=== PATIENT | female | born 1930 | race Caucasian/White ===

== ENCOUNTER 2019-08-11 19:12 | Inpatient (IN) | payer OTHER, BC ==
[~2019-08-11] VITALS: Ht 152.4 cm; Wt 63.1 kg
[2019-08-11 19:12] VITALS: BP 140/65
--- NOTE | 2019-08-11 19:12 | NUR ---
89 y/o female biba from [facility] c/o sob/ resp distress x todat after 1630. paramedics said last time seen normal was at 1630. lung sounds are ronchi and rales throughout. on cpap on the way and was sating at 89%. gcs: 9. EET 7.0 SIZE. TAPED AT 23. ON VENT WITH FIO2 50%. SKIN INTACT. VSS. nka. pmh: htn, parkinsons, ibs, glucacoma, uti. 1918 2MG JOSSELYN GIVEN IVP. 1919 SUCC 100MG IVP GIVEN. 1920 UNTUBATION STARTED BY ZIA MENDEZ. 1920 EET SIZE 7.0 AND 23CMA T LIP. 1920 LAC 18 GAUGE 1934 RIGHT FOREARM 18 GUAGE. 1939: NG TUBE PLACED, 18FR. 300CC OF YELLOW BROWN DRAINAGE. ON INTERMITTENT SUCTION. 1949: PROFOLOL STARTED: BP IS 145/68, HR 104, SPO2 96% ON VENT 2015: REYES 16FR INSERTED AND COLLECTED 25CC OF DARK YELLOW URINE. 2042: INCREASED DOSE OF PROFOLOL TO 10MCG/KG/MIN. 3.01 ML/HR. BP IS 126/67. ALTAGRACIA SCORE IS -3. MD LIZARRAGA WANTS ALTAGRACIA SCORE TO BE -4. 2057: INCREASED DOSE OF PROFOLOL TO 15MCG/KG/MIN. 4.51ML/HR. BP: 135/68 2120: INCREASED DOSE OF PROFOLOL TO 20MCG/KG/MIN. 6.02ML/HR. BP: 135/66. ALTAGRACIA SCORE IS -3.
[2019-08-11 19:13] VITALS: BP 142/62
[2019-08-11] MEDS ORDERED: PROPOFOL 1000 MG/100 ML PREMIX 100 ML IV ONE ×2 (19:22→19:50)
[2019-08-11] MEDS ORDERED: NACL 0.9% 500 ML IV SCH (19:24)
[2019-08-11] MEDS ORDERED: SUCCINYLCHOLINE CHLORIDE 200 MG/10 ML VIAL IVP ONE (19:50)
[2019-08-11] MEDS ORDERED: ROCURONIUM 50 MG/5 ML VIAL IV ONE (19:50)
--- NOTE | 2019-08-11 19:50 | NUR ---
Called [facility], spoke to Lacy BLANCAS and updated Pt's status.
[2019-08-11 20:18] LABS: PROTHROMBIN TIME 11.6 secs (10.8-13.4)
--- NOTE | 2019-08-11 20:35 | NUR ---
CRITICAL LAB OBTAINED FROM [facility]. LACTIC ACID 2.7. NOTIFIED.
--- NOTE | 2019-08-11 20:42 | NUR ---
lab at bedside.
[2019-08-11 20:59] LABS: BASOPHILS # (AUTO) 0.1 K/uL (0.00-0.22); BASOPHILS % (AUTO) 0.6 % (0.0-2.0); EOSINOPHILS % (AUTO) 0.2 % (0.0-4.0); HEMATOCRIT 34.8 % (36-48); HEMOGLOBIN 11.3 g/dL (12.0-16.0); LYMPHOCYTES # (AUTO) 0.9 K/uL (2.5-16.5); LYMPHOCYTES % (AUTO) 5.1 % (20.5-51.1); MEAN CORPUSCULAR HEMOGLOBIN 31 pg (27-31); MEAN CORPUSCULAR HGB CONC 33 g/dL (33-37); MEAN CORPUSCULAR VOLUME 94.5 fL (80-94); MONOCYTES # (AUTO) 0.6 K/uL (0.8-1.0); MONOCYTES % (AUTO) 3.3 % (1.7-9.3); NEUTROPHILS # (AUTO) 16.4 K/uL (1.8-7.7); NEUTROPHILS % (AUTO) 90.8 % (42.2-75.2); PLATELET COUNT (AUTO) 265 K/uL (140-450); RED BLOOD CELL COUNT(AUTO) 3.68 MIL/uL (4.20-5.40); WHITE BLOOD COUNT (AUTO) 18.1 K/uL (4.8-10.8)
[2019-08-11] MEDS ORDERED: PIPERACILLIN/TAZOBACTAM 3.375 GM in DEXTROSE 5% 50 ML IV ONE (21:05)
[2019-08-11] MEDS ORDERED: NACL 0.9% 1,000 ML IV ONE (21:05)
[2019-08-11 21:10] LABS: BILIRUBIN,URINE NEGATIVE (NEGATIVE); BLOOD, URINE NEGATIVE (NEGATIVE); LEUKOCYTE ESTERASE ,URINE TRACE (NEGATIVE); NITRITE, URINE NEGATIVE (NEGATIVE); PH,URINE 5.5 (5.0-9.0); UGLUCOSE NEGATIVE (NEGATIVE)
[2019-08-11 21:12] LABS: APPEARANCE,URINE HAZY (CLEAR); COLOR,URINE AMBER (YELLOW)
[2019-08-11 21:20] VITALS: BP 148/69
[2019-08-11 21:22] LABS: RBC,URINE NONE SEEN /HPF (0-5); WBC,URINE 20-60 /HPF (0-5)
[2019-08-11] MEDS ORDERED: LEVOFLOXACIN 500 MG/D5W PREMIX 100 ML IV ONE (21:25)
--- NOTE | 2019-08-11 21:35 | NUR ---
2135: PROFOLOL INCREASED TO 25MCG/KG/MIN. 7.53ML/HR. BP: 135/68, SPO2 96%, 93HR. INCREASED UNTIL ALTAGRACIA LEVEL IS -4. ALTAGRACIA IS -3. 2204 PROFOLOL INCREASED TO 30MCG/KG/MIN. 9.03ML/HR. BP: 132/71. HR: 94, SPO2 97% ON VENT, RR 35. ALTAGRACIA SCORE IS -3. 2220: BP: 120/70, SPO2 98%, HR 94, RR 37. PROFOLOL STILL AT 30MCG/KG/MIN. 2230: BP: 118/71, SPO2 `00% ON VENT, HR 93, RR 33. PROFOLOL STILL AT 30MCG/KG/MIN. ALTAGRACIA SCORE IS -3. 2310: PROFOLOL INCREASED TO 35MCG/KG/MIN. 10.54ML/HR. BP:114/67, RR 27, HR 86, SPO2 100% ON VENT. ALTAGRACIA SCORE IS -4. MET MD ORDER FOR ALTAGRACIA TO BE AT -4.
[2019-08-11] MEDS ORDERED: PIPERACILLIN/TAZOBACTAM 3.375 GM VIAL IV ONE (21:41)
[2019-08-11 21:47] LABS: CARBON DIOXIDE 20.5 mmol/L (21-32); CHLORIDE 104 mmol/L (98-107); CREATININE 0.9 mg/dL (0.6-1.3); GLUCOSE 188 mg/dL (74-106); SODIUM SERUM 139 mmol/L (136-145); UREA NITROGEN, BLOOD 24 mg/dL (7-18)
[2019-08-11 21:49] LABS: POTASSIUM 3.5 mmol/L (3.5-5.1)
[2019-08-11 21:53] LABS: ASPARTATE AMINOTRANSFERASE 6 U/L (15-37); TOTAL BILIRUBIN 0.7 mg/dL (0.0-1.0)
[2019-08-11] MEDS ORDERED: MORPHINE SULFATE 2 MG/ML SYR IVP PRN (22:20)
[2019-08-11] MEDS ORDERED: HYDROcodone/APAP 5/325 MG 1 TAB TAB PO PRN (22:20)
[2019-08-11] MEDS ORDERED: DOCUSATE SODIUM 100 MG GELCAP PO PRN (22:20)
[2019-08-11] MEDS ORDERED: ACETAMINOPHEN 325 MG TAB PO PRN (22:20)
[2019-08-11] MEDS ORDERED: ONDANSETRON 4 MG/2 ML VIAL IM/IVP PRN (22:20)
[2019-08-11] MEDS ORDERED: ZOLPIDEM 5 MG TAB PO PRN (22:20)
[2019-08-11] MEDS ORDERED: LORazepam 2 MG/ML VIAL IM/IVP PRN (22:20)
[2019-08-11] MEDS ORDERED: ASPIRIN 600 MG SUPP RC ONE (22:20)
[2019-08-11] MEDS ORDERED: NITROGLYCERIN 0.4 MG TAB SL PRN (22:25)
[2019-08-11] MEDS ORDERED: CARB1ODT4 PO (22:43)
[2019-08-11] MEDS ORDERED: DOCU-299 PO (22:43)
[2019-08-11] MEDS ORDERED: BETH25TA47 PO (22:44)
[2019-08-11] MEDS ORDERED: COM200 PO (22:45)
[2019-08-11] MEDS ORDERED: OLAN2.5T1 PO (22:46)
[2019-08-11] MEDS ORDERED: MIDO5TAB4 PO (22:47)
[2019-08-11] MEDS ORDERED: EXE9.5T TP (22:47)
[2019-08-11] MEDS ORDERED: MEGE40SU23 PO (22:48)
[2019-08-11] MEDS ORDERED: ISTR20TA PO (22:53)
[2019-08-11] MEDS ORDERED: TERI250S2 SC (22:55)
[2019-08-11 22:57] LABS: CHOL/HDL RATIO 3.2 (1-4.5); MAGNESIUM 1.7 mg/dL (1.8-2.4); PHOSPHORUS 2.6 mg/dL (2.5-4.9); THYROID STIMULATING HORMONE 1.3 uIU/mL (0.34-3.74)
[2019-08-11] MEDS ORDERED: METH1TAB50 PO (22:57)
[2019-08-11] MEDS ORDERED: PANTOPRAZOLE 80 MG in NACL 0.9% 100 ML IV SCH (23:15)
[2019-08-11 23:30] VITALS: BP 122/78
--- NOTE | 2019-08-11 23:35 | NUR ---
PT RECEIVED FROM ER VIA [facility]. REPORT RECEIVED FROM AKANKSHA FERNANDEZ. PT ETT TO VENT. ON ACVC SETTINGS. FIO2 40, TV 500, RATE 12, PEEP 5. PT SEDATED ON PROPOFOL DRIP AT 35MCG/KG/MIN. DRY WEIGHT 50.2 KG. SINUS RHYTHM ON MONITOR. LUNG SOUNDS RHONCHI. PERIPHERAL IV SITE AT LEFT AC 18 GAUGE AND RIGHT FOREARM 18 GAUGE. NS BOLUS CURRENTLY INFUSING. ABDOMEN SOFT AND FLAT. ACTIVE BOWEL SOUNDS. NGT ON THE R NARE SLIGHTLY OUT, REINSERTED. SKIN IS WARM AND DRY. CAP REFILL LESS THAN 20 SECONDS. MULTIPLE MOLES NOTED ON ABDOMEN AREA. REDNESS ON SACRAL AREA. REYES CATHETER IN PLACE. HOB 30 DEGREES. BED LOCKED IN LOWEST POSITION. WILL CONTINUE TO MONITOR.
[2019-08-11 23:45] VITALS: BP 112/69
[2019-08-11 23:55] VITALS: BP 112/69
[2019-08-12] VITALS (93 sets, daily range): BP systolic 81–159; BP diastolic 50–107
--- NOTE | 2019-08-12 01:00 | NUR ---
PT HAD 1 BM, BROWN RUNNY, STOOL. JUN CARE PROVIDED.
[2019-08-12] MEDS ORDERED: MAG SULF 2000 MG/WATER PREMIX 50 ML IV SCH ×2 (01:05→11:09)
--- NOTE | 2019-08-12 02:00 | NUR ---
IV LINE ON LEFT AC LEAKING. REATTEMPTED TO INSERT IV LIVE MULTIPLE TIMES. CALLED [facility] NURSE TO INSERT IV LINE. PERIPHERAL IV 20 GAUGE LINE ON R FOREARM, INTACT, PATENT, GOOD BLOOD RETURN.
[2019-08-12] MEDS: LACTATED RINGERS 1,000 ML IV SCH ×2 (03:00→06:57)
[2019-08-12] MEDS ORDERED: PROPOFOL 1000 MG/100 ML PREMIX 100 ML IV ONE (03:50)
--- NOTE | 2019-08-12 04:15 | NUR ---
PT ON PROPOFOL DRIP RASS -3. INFUSING AT 35 MCG/KG/MIN. DRY WEIGHT 50.2 KG
[2019-08-12] MEDS: NACL 0.9% 1,000 ML IV SCH ×2 (04:28→14:59)
[2019-08-12] MEDS ORDERED: hePARIN / DEXT 5% PREMIX 250 ML IV SCH (04:35)
[2019-08-12] MEDS ORDERED: HEPARIN PER PHARMACY MC PRN (04:35)
--- NOTE | 2019-08-12 05:30 | NUR ---
PT BROUGHT TO CT SCAN VIA [facility].
[2019-08-12] MEDS ORDERED: PROPOFOL 1000 MG/100 ML PREMIX 100 ML IV PRN (05:55)
--- NOTE | 2019-08-12 06:15 | NUR ---
PT RETURNED FROM CT SCAN.
[2019-08-12 06:31] LABS: ANION GAP 17.9 (8-16); CARBON DIOXIDE 22.1 mmol/L (21-32); CHLORIDE 106 mmol/L (98-107); CREATININE 0.8 mg/dL (0.6-1.3); GLUCOSE 113 mg/dL (74-106); SODIUM SERUM 143 mmol/L (136-145); UREA NITROGEN, BLOOD 20 mg/dL (7-18)
[2019-08-12 06:34] LABS: BASOPHILS % (AUTO) 0.1 % (0.0-2.0); HEMOGLOBIN 10.6 g/dL (12.0-16.0); LYMPHOCYTES # (AUTO) 1.1 K/uL (2.5-16.5); LYMPHOCYTES % (AUTO) 7.4 % (20.5-51.1); MEAN CORPUSCULAR HEMOGLOBIN 31 pg (27-31); MEAN CORPUSCULAR HGB CONC 33 g/dL (33-37); MEAN CORPUSCULAR VOLUME 93.9 fL (80-94); MONOCYTES # (AUTO) 0.7 K/uL (0.8-1.0); MONOCYTES % (AUTO) 4.5 % (1.7-9.3); PLATELET COUNT (AUTO) 221 K/uL (140-450); RED BLOOD CELL COUNT(AUTO) 3.41 MIL/uL (4.20-5.40); RED CELL DISTRIBUTION WIDTH 13.7 % (11.6-13.7); WHITE BLOOD COUNT (AUTO) 14.7 K/uL (4.8-10.8)
[2019-08-12 06:48] LABS: MAGNESIUM 1.5 mg/dL (1.8-2.4)
[2019-08-12] MEDS: hePARIN / DEXT 5% PREMIX 250 ML IV SCH (06:57)
[2019-08-12] MEDS: PIPERACILLIN/TAZOBACTAM 3.375 GM in DEXTROSE 5% 50 ML IV SCH ×3 (07:00→21:03)
[2019-08-12] MEDS ORDERED: PIPERACILLIN/TAZOBACTAM 3.375 GM VIAL IV ONE (07:03)
--- NOTE | 2019-08-12 07:30 | NUR ---
RECEIVED BEDSIDE REPORT FROM SUPERVISOR MALTED MILK RN. PT IS SEDATED. RASS -3. FLACC 0. AFEBRILE. SR-SB ON MONITOR. S1 S2 HEARD. ETT TO VENT: A/C VC FIO2 40%, VT 400, RR 12, PEEP 5. LUNGS SOUND CLEAR BILATERALLY. BREATHING EVEN AND UNLABORED. NGT IN PLACE TO RIGHT NARE. PLACEMENT CONFIRMED. PERIPHERAL IVS G 18 AND G20 BOTH TO RIGHT FOREARM PATENT AND INTACT, RUNNING PROPOFOL AT 35 MCG/KG/MIN (DRY WEIGHT 50.2 KG), HEPARIN DRIP AT 600 UNIT/HR, NS AT 60 ML/HR.REYES CATH IN PLACE DRAINING URINE TO GRAVITY DRAINAGE BAG. SKIN IS INTACT, DRY AND WARM TO TOUCH. PULSE PALPABLE TO ALL EXTREMITIES. HOB 30 DEGREES. BED IN LOWEST POSITION LOCKED. CALL LIGHT WITHIN REACH. WILL CONTINUE TO MONITOR.
--- NOTE | 2019-08-12 07:30 | NUR ---
REPORT GIVEN TO EFRAIN FERNANDEZ FOR CONTINUITY OF CARE.
--- NOTE | 2019-08-12 07:40 | NUR ---
RECEIVED PT FROM [facility] ON AC 12,400.+5,40%. VENTILATOR PLUGGED INTO RED OUTLET. BMV AT THE HEAD OF BED. ALARMS AUDIBLE AND WORKING. PT REMAINS STABLE. NO SX NEEDED AT THIS TIME.WILL CONTINUE TO MONITOR.
[2019-08-12] MEDS ORDERED: ISTRADEFYLLINE 20 MG PO SCH (08:00)
[2019-08-12] MEDS ORDERED: MEGESTROL 400 MG/10 ML UDC PO SCH (08:11)
--- NOTE | 2019-08-12 08:26 | NUR ---
PATIENT HAS BEEN SCREENED AND CATEGORIZED HIGH NUTRITION RISK. PATIENT WILL BE SEEN WITHIN 1-2 DAYS OF ADMISSION. 08/12/19-08/13/[address]
[2019-08-12] MEDS: PANTOPRAZOLE 40 MG INJ VIAL IVP SCH (08:44)
[2019-08-12] MEDS: ASCORBIC ACID 500 MG TAB PO SCH (08:45)
[2019-08-12] MEDS: LACTOBACILLUS RHAMNOSUS GG 1 EACH CAP PO SCH (08:45)
[2019-08-12] MEDS: ASPIRIN 81 MG TAB.CHEW PO SCH (08:46)
[2019-08-12] MEDS: MIDODRINE 5 MG TAB PO SCH ×3 (08:46→17:07)
[2019-08-12] MEDS: FERROUS SULFATE 325 MG TABEC PO SCH (08:46)
[2019-08-12] MEDS: ENTACAPONE 200 MG TAB PO SCH ×2 (08:59→21:02)
[2019-08-12] MEDS ORDERED: METOPROLOL 25 MG TAB PO SCH (09:00)
[2019-08-12] MEDS: BETHANECHOL 25 MG TAB PO SCH ×3 (09:00→17:07)
[2019-08-12] MEDS ORDERED: CARBIDOPA/LEVODOPA 25/100 MG 1 TAB PO SCH (09:00)
[2019-08-12] MEDS ORDERED: DOCUSATE SODIUM 100 MG GELCAP PO SCH (09:00)
[2019-08-12] MEDS ORDERED: KCL 20 MEQ/WATER INJ PREMIX 100 ML IV SCH (09:00)
[2019-08-12] MEDS ORDERED: LISINOPRIL 5 MG TAB PO SCH (09:00)
--- NOTE | 2019-08-12 09:00 | NUR ---
MEDICATIONS ADMINISTERED ORDERED. PT TOLERATED WELL.
--- NOTE | 2019-08-12 09:33 | NUR ---
Research Aide Note: Basic Screen: Yes High Risk DC Screen Yes Name: NIKOLE ESCAMILLA Home Relationship: SISTER Pre-Admission Living Arrangements: Other Other: [facility] Prior ADL Needs Assistance Current Home Health Name/Tel: N/A Current DME/02 Name/Tel: [facility], [facility] Current Hospice Name/Tel: N/A Current Dialysis Name/Tel: N/A Healthcare Decision Maker: Next of Kin Other: SISTER - NIKOLE ESCAMILLA Advance Directive No Discipline: Case Mgt/Social Svcs Tentative Discharge Plan/Destination: No Needs Identified Will require assistance post discharge: No Referred to Driver Medic: No Tentative Discharge Plan Summary: Patient is an 82-year-old female admitted for respiratory failure. Patient has PMHX of Parkinson's, IBS, and HTN. Patient was admitted from [facility]. SW contacted Sharon, a nurse from [facility] [phone]. Per Sharon, patient has standby assistance with all ADLs due to patient's Parkinson's. Sharon also stated that patient is able to ambulate with a walker independently, but needs assistance with all other ADLs. Sharon reported that patient has been a resident of [facility] since August 2016, but that [facility] is a tri-level care facility. Sharon explained that it is possible patient was a resident of the [facility], and may be transferred to a skilled residence in [facility] if necessary. Sharon reported that patient has no advanced directive on file, but that sister, Nikole Escamilla is her healthcare decision maker. Per Sharon, patient's discharge plan is to return to [facility]. No further needs identified. Signature: NAHID Jimenez Date: Aug 12, 2019 Time: 09:31
[2019-08-12] MEDS ORDERED: POTASSIUM CHLORIDE 10 MEQ TABER PO SCH (11:07)
[2019-08-12] MEDS ORDERED: POTASSIUM CHLORIDE 20% 40 MEQ/15 ML UDC PO SCH (11:23)
[2019-08-12] MEDS ORDERED: POTASSIUM PHOSPHATE 15 MM in NACL 0.9% 250 ML IV SCH (11:30)
--- NOTE | 2019-08-12 11:30 | NUR ---
ECHOCARDIOGRAM AT BEDSIDE. PT STILL ON PROPOFOL DRIP, RASS -3. FLACC 0. NO SIGNS OF DISTRESS. WILL CONTINUE TO MONITOR.
[2019-08-12] MEDS ORDERED: METHENAMINE HIPPURATE PO SCH (11:37)
[2019-08-12] MEDS ORDERED: TERIPARATIDE 600 MCG/2.4 ML SUBQ SCH (12:03)
[2019-08-12] MEDS: CARBIDOPA/LEVODOPA 25/100 MG 1 TAB PO SCH ×3 (12:44→20:00)
[2019-08-12] MEDS: RIVASTIGMINE 9.5 MG/24 HR PATCH TP SCH (12:44)
--- NOTE | 2019-08-12 13:25 | NUR ---
RECEIVED CALL FROM PT'S SISTER, ANA. UPDATES GIVEN ON PT'S CONDITION.
[2019-08-12 13:35] LABS: PROTHROMBIN TIME 13.2 secs (10.8-13.4)
--- NOTE | 2019-08-12 13:42 | NUR ---
08/12/19 RD INITIAL ASSESSMENT COMPLETED PLEASE REFER TO NUTRITION ASSESSMENT UNDER CARE ACTIVITY FOR ESTIMATED NUTRITIONAL NEEDS. 1. CONTINUE NPO MEDICALLY APPROPRIATE 2. IF PATIENT CONTINUES TO BE INTUBATED CONSIDER TUBE FEEDING WITH VITAL AF 1.2 @ GOAL RATE 45 ML/HR. START AT 15 ML/HR AND INCREASE BY 15 ML/HR Q6H. FREE WATER FLUSH OF 105 ML Q6H -THIS WILL PROVIDE 1080 ML OF VOLUME, 1296 KCAL AND 81 GM OF PROTEIN WHICH MEETS 100% OF ESTIMATED NEEDS. 3. IF PATIENT IS EXTUBATED CONSIDER ORDERING A SWALLOW EVALUATION TO INITIATE A PO DIET 4. RD TO FOLLOW-UP 2-3 DAYS, HIGH RISK JENNIFER [address] RD
--- NOTE | 2019-08-12 16:02 | NUR ---
VAP ORAL CARE GIVEN. TURNED AND REPOSITIONED FOR COMFORT AND OFF LOADED PRESSURE AREAS. PT TOLERATED WELL.
--- NOTE | 2019-08-12 19:30 | NUR ---
REPORT GIVEN TO CHANNELING MACHINE OPERATOR RN FOR CONTINUITY OF CARE. NO SIGNS OF DISTRESS NOTED AT THIS TIME.
--- NOTE | 2019-08-12 20:00 | NUR ---
RECEIVED PATIENT ON BED WITH HOB ELEVATED TO 30 DEGREE; SEDATED WITH CONTINOUS PROPOFOL DRIP AT 35 MCG/KG/MIN VIA G 20 IV CANNULA ON RIGHT FOREARM; IVF IN PROGRESS NORMAL SALINE AT 60 ML/HR; CARDIAC SCOPE SHOWS ON SINUS RHYTHM HR 66, NO ARRHYTHMIAS SEEN.ORALLY INTUBATED AND VENTILATED AT 40% FIO2 SO2 100%. ABDOMEN SOFT, HYPOACTIVE BOWEL SOUNDS; NGT IN SITU; KEPT NPO EXCEPT MEDS. WITH REYES CATH IN PLACE DRAINING TO CLEAR YELLOW URINE OUTPUT, PATENT AND INTACT. Addendum: 08/12/19 at 2203 by Rika Santa RN DRY WEIGHT USE FOR PROPOFOL DRIP IS 50.2 KG.
--- NOTE | 2019-08-12 20:28 | NUR ---
RECEIVED ON Managed [employer] R860 VENTILATOR PLUGGED INTO RED OUTLET TOLERATING WELL WITHOUT ADVERSE REACTIONS NOTED TO AN ENDOTRACHEAL TUBE #7.0 SECURED AT 23cm WITH AN ANCHOR FAST CUFF PRESSURE CHECKED NOTED AMBU BAG AT BEDSIDE LOC QUIET STABLE NO PULMONARY DISTRESS NOTED GOOD EQUAL CHEST RISE ENDOTRACHEAL SUCTION FOR LARGE THICK TO THIN YELLOW/BLOODY SECRETIONS OROPHARYNX SUCTION FOR LARGE THICK TO THIN DARK RED SECRETIONS AIRWAY PATENT
[2019-08-12] MEDS: ATORVASTATIN 20 MG TAB PO SCH (21:02)
[2019-08-12] MEDS: OLANZapine 2.5 MG TAB PO SCH (21:03)
[2019-08-12] MEDS: METHENAMINE HIPPURATE PO SCH (21:05)
--- NOTE | 2019-08-12 21:58 | NUR ---
RESTING COMFORTABLY NO RESPIRATORY DISTRESS NOTED GOOD CHEST RISE AIRWAY PATENT
--- NOTE | 2019-08-12 23:52 | NUR ---
NO DISTRESS NOTED RESTING WELL ENDOTRACHEAL SUCTION FOR LARGE BLOODY SECRETIONS AIRWAY PATENT
[2019-08-13] VITALS (99 sets, daily range): BP systolic 73–130; BP diastolic 38–73
--- NOTE | 2019-08-13 | NUR ---
TURNED AND REPOSITIONED PATIENT; ORAL CARE DONE WITH VAP, NOTED WITH MINIMAL PINKISH SECRETION FROM THE MOUTH.
[2019-08-13] MEDS: PIPERACILLIN/TAZOBACTAM 3.375 GM in DEXTROSE 5% 50 ML IV SCH ×4 (00:23→20:14)
[2019-08-13] MEDS: NACL 0.9% 1,000 ML IV SCH ×2 (00:24→16:48)
--- NOTE | 2019-08-13 01:47 | NUR ---
SEDATED NO RESPIRATORY DISTRESS NOTED GOOD CHEST RISE ENDOTRACHEAL SUCTION FOR MODERATE BLOODY SECRETIONS AIRWAY PATEN
[2019-08-13 03:36] LABS: CHLORIDE 111 mmol/L (98-107); CREATININE 0.7 mg/dL (0.6-1.3); GLUCOSE 101 mg/dL (74-106); SODIUM SERUM 144 mmol/L (136-145); UREA NITROGEN, BLOOD 14 mg/dL (7-18)
[2019-08-13 03:40] LABS: PHOSPHORUS 2.7 mg/dL (2.5-4.9)
--- NOTE | 2019-08-13 03:43 | NUR ---
PERSISTENT FILIBERTO RED BLOOD APPEARING DURING ENDOTRACHEAL SUCTIONING ILEANA/RN NOTIFIED RE: PULMONARY EMBOLUS; HEPARIN DRIP ACTIVE
--- NOTE | 2019-08-13 03:44 | NUR ---
POST ENDOTRACHEAL SUCTIONING PATIENT NOTED WITH BRONCHOSPASM WITH INSPIRATORY WHEEZE BILATERAL FIELD HEALTH OFFICER TO ADVISE DR. ELÍAS HOPKINS NEW ORDERS: OK TO ORDER HHN PRN THERAPY WITH DUONEB Q4 PRN FOR SOB AND OR WHEEZE
[2019-08-13] MEDS ORDERED: ALBUTEROL SULFATE/IPRATROPIU 3 ML SOL IH PRN (03:50)
[2019-08-13] MEDS ORDERED: ALBUTEROL SULFATE/IPRATROPIU 3 ML SOL IH ONE (03:54)
--- NOTE | 2019-08-13 03:59 | NUR ---
NOTED WITH MODERATE TO COPIOUS BRIGHT RED SECRETION FROM ETT DURING SUCTIONING; REFERRED TO DR. YANEZ, SEEN AND EXAMINED PATIENT WITH ORDER TO HOLD HEPARIN DRIP FOR 2 HRS AND OBSERVED CLOSELY THE PATIENT.
[2019-08-13 04:01] LABS: PROTHROMBIN TIME 12.3 secs (10.8-13.4)
--- NOTE | 2019-08-13 04:15 | NUR ---
MORNING BED BATH DONE; HAD BM TO A MODERATE AMOUNT OF SOFT FORMED STOOL; STOOL SPECIMEN SENT TO LAB FOR OCCULT BLOOD.
[2019-08-13] MEDS: ALBUTEROL SULFATE/IPRATROPIU 3 ML SOL IH PRN (05:49)
--- NOTE | 2019-08-13 05:50 | NUR ---
SOB NOTED ENDOTRACHEAL SUCTION FOR MODERATE THICK YELLOW WITH BLOODY SECRETIONS AIRWAY PATENT
--- NOTE | 2019-08-13 06:15 | NUR ---
PATIENT STILL HAVING MINIMAL TO SMALL AMOUNT OF BRIGHT RED BLOOD FROM THE ETT AND FROM THE MOUTH; REFERRED TO DR. YANEZ; ORDERED TO CONTINUE HOLDING HEPARIN DRIP; CARRIED OUT.
--- NOTE | 2019-08-13 06:30 | NUR ---
STOOL SPECIMENT SENT TO LAB FOR OCCULT BLOOD.
[2019-08-13 06:34] LABS: BASOPHILS % (AUTO) 0.2 % (0.0-2.0); EOSINOPHILS % (AUTO) 0.2 % (0.0-4.0); HEMATOCRIT 26.9 % (36-48); HEMOGLOBIN 8.9 g/dL (12.0-16.0); LYMPHOCYTES # (AUTO) 1.4 K/uL (2.5-16.5); LYMPHOCYTES % (AUTO) 9.5 % (20.5-51.1); MEAN CORPUSCULAR HEMOGLOBIN 31 pg (27-31); MEAN CORPUSCULAR HGB CONC 33 g/dL (33-37); MEAN CORPUSCULAR VOLUME 94.2 fL (80-94); MONOCYTES # (AUTO) 0.6 K/uL (0.8-1.0); MONOCYTES % (AUTO) 4.3 % (1.7-9.3); NEUTROPHILS # (AUTO) 12.7 K/uL (1.8-7.7); NEUTROPHILS % (AUTO) 85.8 % (42.2-75.2); PLATELET COUNT (AUTO) 196 K/uL (140-450); RED BLOOD CELL COUNT(AUTO) 2.86 MIL/uL (4.20-5.40); RED CELL DISTRIBUTION WIDTH 13.9 % (11.6-13.7); WHITE BLOOD COUNT (AUTO) 14.8 K/uL (4.8-10.8)
--- NOTE | 2019-08-13 06:55 | NUR ---
received pt from [facility] on ac 12.400,+5,35%. ventilator plugged into red outlet. bmw at head of bed. alrms audible and working. pt is currently stable at the moment. b/s were mild wheezes. will give a prn in about a couple of hours. saturation is 100%. did not sx the patient at this time. will continue to monitor
--- NOTE | 2019-08-13 07:30 | NUR ---
RECEIVED BEDSIDE REPORT FROM CONSULTANT RN RN. PT IS SEDATED. RASS -3. FLACC 0. AFEBRILE. SINUS TACHY ON MONITOR. S1 S2 HEARD. PULSE PALPABLE TO ALL EXTREMITIES. ETT TO VENT W/ SETTINGS: A/C VC FIO2 35%, VT 400, RR 12, PEEP 5. WHEEZING HEARD BILATERALLY. BREATHING EVEN AND UNLABORED. NGT IN PLACE TO RIGHT NARE. PLACEMENT CONFIRMED. NO RESIDUALS, NO SIGNS OF BLEEDING NOTED. PICC LINE TO RIGHT UPPER ARM IN PLACE, PERIPHERAL IV G18 TO RIGHT AC AND G20 TO RIGHT FOREARM PATENT AND INTACT, RUNNING PROPOFOL AT 25 MCG/KG/MIN (DRY WEIGHT 50.2 KG), IVF NS AT 60 ML/HR. REYES CATH IN PLACE DRAINING MATILDA URINE TO GRAVITY. SKIN IS INTACT, DRY AND WARM TO TOUCH. SACRAL BLANCHABLE REDNESS NOTED. HOB 30 DEGREES. BED IN LOWEST POSITION LOCKED. CALL LIGHT WITHIN REACH. NO SIGNS OF DISTRESS NOTED. WILL CONTINUE TO MONITOR.
--- NOTE | 2019-08-13 08:00 | NUR ---
PT SEEN BY DR. DELGADILLO AND RESIDENT GROUP AT BEDSIDE, MADE AWARE OF INCREASED HR 115 BPM AND DECREASED BP 87/52 (MAP 69) AT THIS TIME. WILL FOLLOW UP ON ORDERS.
[2019-08-13 08:06] LABS: FOLIC ACID 13.6 ng/mL (>3.0)
[2019-08-13] MEDS: ENTACAPONE 200 MG TAB PO SCH ×2 (08:19→20:11)
[2019-08-13] MEDS: BETHANECHOL 25 MG TAB PO SCH ×3 (08:19→16:47)
[2019-08-13] MEDS: ASCORBIC ACID 500 MG TAB PO SCH (08:21)
[2019-08-13] MEDS: MEGESTROL 400 MG/10 ML UDC PO SCH (08:21)
[2019-08-13] MEDS: MIDODRINE 5 MG TAB PO SCH ×3 (08:22→16:47)
[2019-08-13] MEDS: PANTOPRAZOLE 40 MG INJ VIAL IVP SCH (08:22)
[2019-08-13] MEDS: ASPIRIN 81 MG TAB.CHEW PO SCH (08:22)
[2019-08-13] MEDS: LACTOBACILLUS RHAMNOSUS GG 1 EACH CAP PO SCH (08:22)
[2019-08-13] MEDS: FERROUS SULFATE 325 MG TABEC PO SCH (08:22)
[2019-08-13] MEDS: METHENAMINE HIPPURATE PO SCH ×2 (08:23→20:14)
[2019-08-13] MEDS: TERIPARATIDE 600 MCG/2.4 ML SUBQ SCH (08:23)
[2019-08-13] MEDS: CARBIDOPA/LEVODOPA 25/100 MG 1 TAB PO SCH ×4 (08:23→20:14)
--- NOTE | 2019-08-13 08:26 | NUR ---
MEDICATIONS ADMINISTERED ORDERED. PT TOLERATED WELL. ASPIRIN HELD PER DR. MORALES DUE TO BLEEDING FROM ETT. NO SIGNS OF BLEEDING NOTED FROM NGT. NGT PLACEMENT CONFIRMED, NO RESIDUALS NOTED PRIOR TO MED ADMINISTRATION.
--- NOTE | 2019-08-13 11:10 | NUR ---
PT SEEN AND EXAMINED BY DR. ROSALES. RECEIVED ORDER TO CONTINUE HEPARIN DRIP AT SAME RATE, NO BOLUS, AND TO START CPAP WEANING TRIALS. SEDATION HELD. RT CHOWDHURY MADE AWARE.
--- NOTE | 2019-08-13 11:36 | NUR ---
per dr. bob. Pt placed on cpap of 10/5 35% at 11:25. pt is achieving adequate vt. pt is alert and responds to simple commands. will continue to monitor Addendum: 08/13/19 at 1244 by Jerald Cesar RT per Dr. Talbot not dr. bob
--- NOTE | 2019-08-13 12:05 | NUR ---
VAP ORAL CARE GIVEN. PT IS ON SBT. OPENS EYES, FOLLOWS SIMPLE COMMANDS, VSS. TURNED AND REPOSITIONED FOR COMFORT AND OFF LOADING PRESSURE AREAS. NO S/SX OF DISTRESS NOTED. WILL CONTINUE TO MONITOR.
[2019-08-13] MEDS: RIVASTIGMINE 9.5 MG/24 HR PATCH TP SCH (12:12)
--- NOTE | 2019-08-13 13:54 | NUR ---
PT TOLERATING SBT. DR. ROSALES MADE AWARE. ORDER RECEIVED.
--- NOTE | 2019-08-13 13:55 | NUR ---
per dr cross. wants patient placed on sbt of 8/5 and abg in 30 minutes. pt is now on 8/5 and achieving vt of 400-500.
--- NOTE | 2019-08-13 14:21 | NUR ---
DR. RAMOS IN TO SEE PT. WILL FOLLOW UP ON ORDERS.
--- NOTE | 2019-08-13 15:13 | NUR ---
PLACED PATIENT BACK ON FULL SUPPORT DUE TO HIGH RESP RATE.
--- NOTE | 2019-08-13 15:20 | NUR ---
RIGHT UPPER ARM AT PICC LINE SITE NOTED SWOLLEN AND BRUISED. PICC LINE AND PERIPHERAL IVS HAVE GOOD BLOOD RETURN. DR. TOTH MADE AWARE. WILL FOLLOW UP ON ORDERS.
--- NOTE | 2019-08-13 16:21 | NUR ---
ULTRASOUND FOR BUE AT BEDSIDE.
--- NOTE | 2019-08-13 16:30 | NUR ---
RESIDENT PHYSICIAN DR. TOTH MADE AWARE OF POSITIVE STOOL OCCULT BLOOD. PER DR. TOTH, CONTINUE HEPARIN DRIP.
[2019-08-13] MEDS: PROPOFOL 1000 MG/100 ML PREMIX 100 ML IV PRN (16:55)
[2019-08-13 17:03] LABS: BASOPHILS % (AUTO) 0.2 % (0.0-2.0); EOSINOPHILS % (AUTO) 0.1 % (0.0-4.0); HEMOGLOBIN 7.9 g/dL (12.0-16.0); LYMPHOCYTES % (AUTO) 6.8 % (20.5-51.1); MEAN CORPUSCULAR HEMOGLOBIN 31 pg (27-31); MEAN CORPUSCULAR HGB CONC 33 g/dL (33-37); MEAN CORPUSCULAR VOLUME 92.6 fL (80-94); MONOCYTES # (AUTO) 0.5 K/uL (0.8-1.0); MONOCYTES % (AUTO) 3.1 % (1.7-9.3); NEUTROPHILS # (AUTO) 13.4 K/uL (1.8-7.7); NEUTROPHILS % (AUTO) 89.8 % (42.2-75.2); PLATELET COUNT (AUTO) 209 K/uL (140-450); RED BLOOD CELL COUNT(AUTO) 2.59 MIL/uL (4.20-5.40); WHITE BLOOD COUNT (AUTO) 14.9 K/uL (4.8-10.8)
--- NOTE | 2019-08-13 18:08 | NUR ---
DR. TOTH MADE AWARE OF 400 ML URINE OUTPUT DURING THE SHIFT. ORDER RECEIVED.
[2019-08-13] MEDS: ALBUTEROL SULFATE/IPRATROPIU 3 ML SOL IH SCH (19:13)
--- NOTE | 2019-08-13 19:26 | NUR ---
REPORT GIVEN TO ASSOCIATE FACULTY RN FOR CONTINUITY OF CARE. NO SIGNS OF ACUTE DISTRESS NOTED AT THIS TIME.
--- NOTE | 2019-08-13 19:30 | NUR ---
RECEIVED PT FROM EFRAIN FERNANDEZ. PT ETT TO VENT ON ACVC SETTINGS. FIO2 35% TV 400, RATE 12, PEEP 5. GUM LINE 24CM. LUNG SOUNDS RHONCHI. PICC LINE BUSTER INTACT, PATENT, INFUSING PROPOFOL 30MCG/KG/MIN AND NS INFUSING AT 90ML/HR. RASS -3. RIGHT FOREARM, INTACT, PATENT INFUSING HEPARIN AT 600MG/MIN. SINUS RHYTHM ON MONITOR. ABDOMEN SOFT, FLAT. ACTIVE BOWEL SOUNDS. NGT IN PLACE R NARE. SKIN IS WARM AND DRY. CAP REFILL LESS THAN 2 SECONDS. SACRAL REDNESS NOTED. GENERALIZED WEAKNESS. NPO EXCEPT MEDS. REYES CATHETER IN PLACE. WEIGHT 50.2KG. HOB 30 DEGREES. BED LOCKED IN LOWEST POSITION.
[2019-08-13] MEDS: ATORVASTATIN 20 MG TAB PO SCH (20:12)
[2019-08-13] MEDS: OLANZapine 2.5 MG TAB PO SCH (20:12)
--- NOTE | 2019-08-13 21:10 | NUR ---
PT HAS EYES CLOSED, NO SOB OR DISTRESS NOTED. RESPIRATIONS AND EVEN AND UNLABORED. WILL CONTINUE TO MONITOR.
--- NOTE | 2019-08-13 23:45 | NUR ---
R FOREARM INFILTRATED AND R AC IV SITE LEAKING. REMOVED BOTH IV SITES. INSERTED NEW 20 GAUGE IV LINE ON L WRIST, INTACT, PATENT, GOOD BLOOD RETURN.
[2019-08-14] VITALS (84 sets, daily range): BP systolic 101–165; BP diastolic 28–91
[2019-08-14] MEDS: hePARIN / DEXT 5% PREMIX 250 ML IV SCH ×2 (00:55→07:36)
--- NOTE | 2019-08-14 00:55 | NUR ---
HEPARIN NOW INFUSING AT 500 UNITS/HR FOR APTT OF 79.5.
[2019-08-14] MEDS: PROPOFOL 1000 MG/100 ML PREMIX 100 ML IV PRN ×2 (00:56→07:39)
[2019-08-14] MEDS: ALBUTEROL SULFATE/IPRATROPIU 3 ML SOL IH SCH ×4 (01:05→19:24)
--- NOTE | 2019-08-14 02:01 | NUR ---
PT HAS EYES CLOSED. NO SOB NOTED. RESPIRATIONS EVEN AND UNLABORED. SAFETY PRECAUTIONS IN PLACE. WILL CONTINUE TO MONITOR.
--- NOTE | 2019-08-14 04:00 | NUR ---
PATIENT REPOSITIONED FOR COMFORT. V/S STABLE. WILL CONTINUE TO MONITOR
[2019-08-14] MEDS: NACL 0.9% 1,000 ML IV SCH (05:03)
[2019-08-14] MEDS: PIPERACILLIN/TAZOBACTAM 3.375 GM in DEXTROSE 5% 50 ML IV SCH ×3 (05:03→21:01)
--- NOTE | 2019-08-14 06:00 | NUR ---
DUE MEDICATIONS GIVEN. V/S STABLE. WILL CONTINUE TO MONITOR
[2019-08-14 06:26] LABS: BASOPHILS % (AUTO) 0.1 % (0.0-2.0); EOSINOPHILS % (AUTO) 0.3 % (0.0-4.0); HEMATOCRIT 22.5 % (36-48); HEMOGLOBIN 7.5 g/dL (12.0-16.0); LYMPHOCYTES # (AUTO) 1.2 K/uL (2.5-16.5); LYMPHOCYTES % (AUTO) 8.4 % (20.5-51.1); MEAN CORPUSCULAR HEMOGLOBIN 31 pg (27-31); MEAN CORPUSCULAR HGB CONC 33 g/dL (33-37); MEAN CORPUSCULAR VOLUME 93.1 fL (80-94); MONOCYTES # (AUTO) 0.4 K/uL (0.8-1.0); NEUTROPHILS # (AUTO) 12.4 K/uL (1.8-7.7); NEUTROPHILS % (AUTO) 88.2 % (42.2-75.2); PLATELET COUNT (AUTO) 197 K/uL (140-450); RED BLOOD CELL COUNT(AUTO) 2.42 MIL/uL (4.20-5.40); RED CELL DISTRIBUTION WIDTH 13.9 % (11.6-13.7); WHITE BLOOD COUNT (AUTO) 14.1 K/uL (4.8-10.8)
[2019-08-14 06:41] LABS: ANION GAP 15.6 (8-16); CARBON DIOXIDE 20.5 mmol/L (21-32); CHLORIDE 110 mmol/L (98-107); CREATININE 0.6 mg/dL (0.6-1.3); GLUCOSE 101 mg/dL (74-106); PHOSPHORUS 2.1 mg/dL (2.5-4.9); POTASSIUM 3.1 mmol/L (3.5-5.1); SODIUM SERUM 143 mmol/L (136-145); UREA NITROGEN, BLOOD 13 mg/dL (7-18)
--- NOTE | 2019-08-14 07:02 | NUR ---
RECIVED PT ON VENT WITH SETTING CHARTED BREATH SOUNDS PRESENT BILAT COARSE SXN PT WITH MIN TO MOD AMT REDDISH SECS ETT SECURE AMBU BAG AT BEDSIDE VENT PLUGGED INTO RED OUTLET WILL CONTINUE TO MONITOR PT ON VENT
--- NOTE | 2019-08-14 07:12 | NUR ---
REPORT GIVEN TO ALBERTO FERNANDEZ FOR CONTINUITY OF CARE. ORDERS REVIEWED AT BEDSIDE.
--- NOTE | 2019-08-14 07:15 | NUR ---
RECEIVED BEDSIDE REPORT FROM SALES PLANNER NURSE, PT IS SEDATED RASS -3, VSS, FLACC 0, ETT TO VENT WITH AC FIO2 25, VT 400, R 12, PEEP 5, NO S/S OF DISTRESS, CLEAR LUNG SOUNDS LOUIS. SR ON SOLAR THERMAL TECHNICIAN, CAP REFILL <2 SEC, SOFT ABDOMEN WITH ACTIVE BOWEL SOUNDS, NGT TO RIGHT NARES, 10ML RESIDULES NOTED, ON NPO EXCEPT MEDS AT THIS TIME, REYES CATHETER IN PLACE WITH CLEAR YELLOW URINE VIA GRAVITY, ON SOFT LOUIS WRIST RESTRAIN, GENERALIZED WEAKNESS NOTED, SKIN IS WARM AND DRY TO TOUCH, NO OPEN WOUNDS, PICC LINE TO RIGHT UPPER ARM, PATENT, RUNNING NS AT 90 ML/HR AND PROPOFOL DRIP AT 35 MCG/KG/MIN, DRY WEIGHT USING ON PUMP IS 50.2KG, IV TO LEFT WRIST, 20GA, PATENT, RUNNING HEPARIN DRIP AT 500 UNITS/HR. ORAL CARE PROVIDED, HOB ELEVATED TO 30 DEGREES, SAFETY MEASURES IN PLACE, POSITION CHANGED FOR OFF LOAD PRESSURE, WILL CONTINUE TO MONITOR.
[2019-08-14] MEDS: ENTACAPONE 200 MG TAB PO SCH ×2 (08:45→21:01)
[2019-08-14] MEDS: PANTOPRAZOLE 40 MG INJ VIAL IVP SCH (08:45)
[2019-08-14] MEDS: ASCORBIC ACID 500 MG TAB PO SCH (08:45)
[2019-08-14] MEDS: BETHANECHOL 25 MG TAB PO SCH ×2 (08:45→13:14)
[2019-08-14] MEDS: MEGESTROL 400 MG/10 ML UDC PO SCH (08:45)
[2019-08-14] MEDS: MIDODRINE 5 MG TAB PO SCH ×3 (08:45→16:39)
[2019-08-14] MEDS: LACTOBACILLUS RHAMNOSUS GG 1 EACH CAP PO SCH (08:45)
[2019-08-14] MEDS: CARBIDOPA/LEVODOPA 25/100 MG 1 TAB PO SCH ×4 (08:46→20:50)
[2019-08-14] MEDS: FERROUS SULFATE 325 MG TABEC PO SCH (08:46)
[2019-08-14] MEDS: ASPIRIN 81 MG TAB.CHEW PO SCH (08:46)
[2019-08-14] MEDS: METHENAMINE HIPPURATE PO SCH ×2 (08:47→21:03)
[2019-08-14] MEDS: RIVASTIGMINE 9.5 MG/24 HR PATCH TP SCH (08:49)
[2019-08-14] MEDS: TERIPARATIDE 600 MCG/2.4 ML SUBQ SCH (08:50)
--- NOTE | 2019-08-14 08:50 | NUR ---
SCHEDULED MEDICATION GIVEN VIA NGT, PATIENT TOLERATED WELL.
--- NOTE | 2019-08-14 09:00 | NUR ---
PROPOFOL HOLD AT THIS TIME FOR SEDATION VACATION, RT NOTIFIED, WILL TRY TO DO WEANING TRAIL WELL.
[2019-08-14] MEDS ORDERED: SODIUM PHOSPHATE 15 MMOLE in NACL 0.9% 250 ML IV SCH (10:00)
--- NOTE | 2019-08-14 10:00 | NUR ---
OFF PROPOFOL FOR ONE HOUR, PATIENT IS NOT ABLE TO WAKE UP OR OPEN EYES AT THIS TIME, DR. ZUNIGA MADE AWARE, STATED CONTINUE HOLD PROPOFOL AND MONITOR. PT VSS, FLACC 0, POSITION CHANGED FOR OFF LOAD PRESSURE.
[2019-08-14] MEDS: KCL 20 MEQ/WATER INJ PREMIX 200 ML IV SCH ×2 (10:04→12:32)
[2019-08-14] MEDS ORDERED: PROBIOTIC SCREEN 1 EA MISC MC PRN (11:05)
--- NOTE | 2019-08-14 11:30 | NUR ---
PATIENT IS MORE AWAKE AND ALERT, ABLE TO KNOCK HEAD WITH YES OR NO QUESTION, ABLE TO FOLLOW SIMPLE COMMANDS, RT AT BEDSIDE, WILL CONTINUE WEANING TRAIL AT THIS TIME.
--- NOTE | 2019-08-14 12:00 | NUR ---
NO CHANGE OF CONDITION, VSS, FLACC 0, ORAL CARE AND SUCTION PROVIDED, POSITION CHANGED FOR OFF LOAD PRESSURE.
[2019-08-14 12:23] LABS: BASOPHILS % (AUTO) 0.2 % (0.0-2.0); EOSINOPHILS # (AUTO) 0.1 K/uL (0-0.4); EOSINOPHILS % (AUTO) 0.4 % (0.0-4.0); HEMATOCRIT 23.6 % (36-48); HEMOGLOBIN 7.9 g/dL (12.0-16.0); LYMPHOCYTES # (AUTO) 1.1 K/uL (2.5-16.5); LYMPHOCYTES % (AUTO) 7.6 % (20.5-51.1); MEAN CORPUSCULAR HEMOGLOBIN 31 pg (27-31); MEAN CORPUSCULAR HGB CONC 33 g/dL (33-37); MEAN CORPUSCULAR VOLUME 92.6 fL (80-94); MONOCYTES # (AUTO) 0.6 K/uL (0.8-1.0); MONOCYTES % (AUTO) 4.1 % (1.7-9.3); NEUTROPHILS # (AUTO) 13.2 K/uL (1.8-7.7); NEUTROPHILS % (AUTO) 87.7 % (42.2-75.2); PLATELET COUNT (AUTO) 208 K/uL (140-450); RED BLOOD CELL COUNT(AUTO) 2.55 MIL/uL (4.20-5.40); RED CELL DISTRIBUTION WIDTH 13.8 % (11.6-13.7)
--- NOTE | 2019-08-14 13:05 | NUR ---
DR. AMAYA CAME IN TO SEE PATIENT AT BEDSIDE, DR. AMAYA SPOKE TO PATIENT'S SISTER ON THE PHONE AND EXPLAINED THE EGD PROCEDURE TO HER, AND OBTAINED CONSENT FROM HER, TWO RNS WITNESSED THE CONSENT.
[2019-08-14] MEDS ORDERED: MIDAZOLAM 2 MG/2 ML VIAL ONE (13:15)
[2019-08-14] MEDS ORDERED: fentaNYL 0.05 MG/ML VIAL ONE (13:15)
--- NOTE | 2019-08-14 13:29 | NUR ---
DR. AMAYA IS PROFORMING EGD AT BEDSIDE, SURGICAL TEAM AT BEDSIDE FOR ASSIST.
--- NOTE | 2019-08-14 13:30 | NUR ---
PT REMOVED FROM CPAP AND PLACED ON AC PER RESP DISTRESS RN AWARE
--- NOTE | 2019-08-14 13:30 | NUR ---
pt having procedure rx not gi orestes
--- NOTE | 2019-08-14 14:00 | NUR ---
NO S/S OF DISTRESS, VSS, FLACC 0, SUCTION PROVIDED, POSITION CHANGED FOR OFF LOAD PRESSURE.
[2019-08-14] MEDS ORDERED: fentaNYL 0.05 MG/ML VIAL IVP ONE (14:55)
[2019-08-14] MEDS ORDERED: MIDAZOLAM 2 MG/2 ML VIAL IVP ONE (14:55)
--- NOTE | 2019-08-14 15:30 | NUR ---
DR. WARD CAME IN TO SEE PATIENT AT BEDSIDE, UPDATED PATIENT'S CONDITION, RT SPOKE TO HIM, PUT PATIENT BACK ON PROPOFOL, WILL TRY TO WEAN TOMORROW AGAIN.
--- NOTE | 2019-08-14 16:00 | NUR ---
PATIENT IS RESTING IN BED, SEDATED, RASS -3, VSS, FLACC 0, ORAL CARE, REYES CATHETER CARE, PM CARE PROVIDED, PATIENT TOLERATED WELL, SUCTION PROVIDED, POSITION CHANGED FOR OFF LOAD PRESSURE, TUBE FEEDING STARTED.
--- NOTE | 2019-08-14 17:30 | NUR ---
CONTOINUED TO MONITOR PT ON VENT WITH SETTINGS CHARTED BREATH SOUNDS PRESENT BILAT CLEAR DIM SXN PT WITH MIN AMT SECS OFF WHITE ETT SECURE AMBU BAG BEDSIDE VENT P-LUGGED INTO RED OUTLET
--- NOTE | 2019-08-14 18:00 | NUR ---
NO CHANGE OF CONDITION, VSS, FLACC 0, POSITION CHANGED FOR OFF LOAD PRESSURE.
--- NOTE | 2019-08-14 19:17 | NUR ---
REPORT GIVEN TO EXCAVATING MACHINE OPERATOR NURSE FOR CONTINUE OF CARE, PT IS IN STABLE CONDITION AT THIS TIME.
--- NOTE | 2019-08-14 19:22 | NUR ---
RECEIVED INTUBATED PT WITH A 7.0 ETT SECURED @23TEETH/GUM ON VENT. SETTINGS AC/VC 12, VT 400, PEEP 5 AND FIO2 35%. PT IS SEDATED AT THIS TIME NOT IN ANY DISTRESS. PT SUCTIONED OBTAINED SMALL AMOUNT OF BROWN/BLOODY SECRETIONS, PT HAS ACTIVE GAG REFLEX.AIRWAY IS PATENT AND ETT IS SECURE. NURSE DAY/NIGHT AWARE OF SECRETIONS. AMBU BAG IS PRESENT NEAR BEDSIDE. VENT ALARMS ON AND FUNCTIONING. WILL CONTINUE TO MONITOR.
--- NOTE | 2019-08-14 19:25 | NUR ---
RECEIVED REPORT FROM DAYSHIFT NURSE AT PATIENTS BEDSIDE. PATIENT ANOx0, ON SEDATION, RASS-3, WITHDRAWS TO LIGHT PAIN, DOES NOT OPEN EYES. PERRL 3MM, SLUGGISH. 7.0 ETT TO VENT, 23 AT THE TEETH. ACVC 12, FI02 35%, TV 400, PEEP 5. LUNG SOUNDS CLEAR, BREATHING IS UNLABORED. S1S2, SR ON MONITOR. RIGHT UPPER ARM PICC LINE IN PLACE, DOUBLE LUMEN, INFUSING NS @ 90ML/HR, AND PROPOFOL @ 35 MCG/KG/MIN-10.54 ML/HR. DRY WEIGHT 50.2 KG, RASS -3. BOTH LINES PATENT. LEFT WRIST PERIPHERAL IV IN PLACE, 20G, FLUSHED AND PATENT WITHOUT SYMPTOMS, INFUSING HEPARIN @ 500 UNITS/HOUR-5ML/HR. ABDOMEN SOFT AND NONTENDER, ACTIVE BOWEL SOUNDS. LARGE MOLE NOTED AT LEFT LOWER QUADRANT. NGT IN PLACE TO RIGHT NARE, CONNECTED TO TUBE FEEDING-JEVITY 1.2 @ 30ML/HR. SLIGHT REDNESS NOTED AT SACRUM. REYES CATHETER IN PLACE, CLEAR YELLOW URINE NOTED. PILLOWS IN PLACE TO OFFLOAD PRESSURE AREAS AT LOWER EXTREMITIES. BILATERAL SOFT WRIST RESTRAINTS IN PLACE, SKIN INTACT. HOB 30 DEGREES, SIDERAILS UPx3, SAFETY ALARMS IN PLACE. WILL CONTINUE TO MONITOR.
--- NOTE | 2019-08-14 20:54 | NUR ---
RESIDENT MD AWARE THAT PATIENTS LAST POTASSIUM LEVEL 3.1-CORRECTED WITH 40 MEQ. SCHEDULED MEDICATIONS ARE LACTULOSE AND MAGNESIUM CITRATE, RESIDENT MD CLARIFIED TO ADMINISTER ALL SCHEDULED MEDS. WILL CARRY OUT.
[2019-08-14] MEDS ORDERED: MAGNESIUM CITRATE 300 ML BTL PO SCH (21:00)
[2019-08-14] MEDS: ATORVASTATIN 20 MG TAB PO SCH (21:01)
[2019-08-14] MEDS: OLANZapine 2.5 MG TAB PO SCH (21:02)
[2019-08-14] MEDS: LACTULOSE 20 GM/30 ML UDC PO SCH (21:02)
--- NOTE | 2019-08-14 21:05 | NUR ---
NGT-RIGHT NARE, IN PLACE TO TUBE FEEDING. AIR CHECK/AUSCULTATION PLACEMENT CONFIRMED. RESIDUALS LESS THAN 5 ML. ADMINISTERED SCHEDULED MEDICATIONS. PROVIDED VAP ORAL CARE. PATIENT WITHDRAWS TO LIGHT SUCTION.
--- NOTE | 2019-08-14 21:39 | NUR ---
FIO2 TITRATED TO 30%. PT NOT IN ANY DISTRESS. WILL CONTINUE TO MONITOR.
--- NOTE | 2019-08-14 23:15 | NUR ---
BILATERAL SOFT WRIST RESTRAINTS REMOVED FOR 15 MINUTES TO ASSESS SKIN AND CIRCULATION. NO SIGNS OF INJURY, GOOD CIRCULATION NOTED. BILATERAL UPPER EXTREMITIES SEEN WITH GENERALIZED EDEMA AND SOME BRUISING NOTED. BOTH UPPER EXTREMITIES PLACED WITH PILLOWS TO PROVIDE GOOD PERFUSION. HEPARIN DRIP STILL IN PLACE AT 500 UNITS PER HOUR. HOB 30 DEGREES.
[2019-08-15] VITALS (40 sets, daily range): BP systolic 119–176; BP diastolic 62–84
[2019-08-15] MEDS: NACL 0.9% 1,000 ML IV SCH ×3 (00:40→12:00)
[2019-08-15] MEDS: PROPOFOL 1000 MG/100 ML PREMIX 100 ML IV PRN (00:41)
--- NOTE | 2019-08-15 00:47 | NUR ---
CONTINUED ON PROPOFOL DRIP, NEW BOTTLE ADMINISTERED, AT 35 MCG/KG/MIN-10.54ML/HR. RASS -3, DRY WEIGHT 50.2 KG. CHANGED IV LINE PER PROTOCOL. PATIENT WITHDRAWS TO LIGHT PAIN, PUPILS EQUAL AND REACTIVE. TURNED AND REPOSITIONED. SAFETY ALARMS IN PLACE. WILL CONTINUE TO MONITOR.
[2019-08-15] MEDS: ALBUTEROL SULFATE/IPRATROPIU 3 ML SOL IH SCH ×4 (01:03→18:52)
--- NOTE | 2019-08-15 03:05 | NUR ---
PT REMAINS SEDATED NOT IN ANY DISTRESS AT THIS TIME. WILL CONTINUE TO MONITOR.
--- NOTE | 2019-08-15 04:10 | NUR ---
VENT ALARM SOUNDING. SUCTIONED PATIENT ENDOTRACHEALLY, SMALL AMOUNT OF BLOODY SECRETIONS NOTED. PROVIDED ORAL CARE. SATURATIONS ABOVE 97%. EQUAL CHEST RISE AND FALL. NO DISTRESS NOTED. ETT TO VENT, ACVC 12 FI02 30% TV 400 PEEP 5.
--- NOTE | 2019-08-15 04:50 | NUR ---
SPONGE BATH, REYES CARE, AND SKIN CARE PROVIDED. PATIENT TOLERATED WELL. SLIGHT REDNESS NOTED AT SACRUM, SKIN INTACT. OPTIFOAM DRESSING REINFORCED. NGT TO TUBE FEEDING ON HOLD FOR CLEANING AND POSITIONING. GOWN, LINEN AND SOCKS REPLACED. BED LOCKED AND IN LOW POSITION, SIDERAILS UPx3
[2019-08-15] MEDS: PIPERACILLIN/TAZOBACTAM 3.375 GM in DEXTROSE 5% 50 ML IV SCH ×3 (05:04→20:25)
--- NOTE | 2019-08-15 05:39 | NUR ---
VENT CHECK COMPLETED PT NOT IN ANY DISTRESS. PT SUCTIONED OBTAINED SCANT AMOUNT OF CLEAR SECRETIONS, AIRWAY IS PATENT AND ETT IS SECURE. VENT ALARMS ON AND FUNCTIONING.
--- NOTE | 2019-08-15 06:00 | NUR ---
PROPOFOL ON HOLD PER ORDER FOR WEANING AND CPAP TRIALS. BILATERAL SOFT WRIST RESTRAINTS IN PLACE. PATIENT STARTING TO MOVE AROUND MORE, BLOOD PRESSURE GOING UP, EYES CONTINUE TO STAY CLOSED. WITHDRAWS TO VOICE.
[2019-08-15 06:06] LABS: BASOPHILS % (AUTO) 0.1 % (0.0-2.0); EOSINOPHILS # (AUTO) 0.1 K/uL (0-0.4); EOSINOPHILS % (AUTO) 0.7 % (0.0-4.0); HEMATOCRIT 23.8 % (36-48); LYMPHOCYTES # (AUTO) 0.9 K/uL (2.5-16.5); LYMPHOCYTES % (AUTO) 7.3 % (20.5-51.1); MEAN CORPUSCULAR HEMOGLOBIN 31 pg (27-31); MEAN CORPUSCULAR HGB CONC 34 g/dL (33-37); MEAN CORPUSCULAR VOLUME 92.9 fL (80-94); MONOCYTES # (AUTO) 0.6 K/uL (0.8-1.0); MONOCYTES % (AUTO) 4.5 % (1.7-9.3); NEUTROPHILS # (AUTO) 11.4 K/uL (1.8-7.7); NEUTROPHILS % (AUTO) 87.4 % (42.2-75.2); PLATELET COUNT (AUTO) 235 K/uL (140-450); RED BLOOD CELL COUNT(AUTO) 2.56 MIL/uL (4.20-5.40)
[2019-08-15 06:39] LABS: CARBON DIOXIDE 19.1 mmol/L (21-32); CHLORIDE 113 mmol/L (98-107); CREATININE 0.6 mg/dL (0.6-1.3); GLUCOSE 135 mg/dL (74-106); POTASSIUM 3.1 mmol/L (3.5-5.1); SODIUM SERUM 144 mmol/L (136-145); UREA NITROGEN, BLOOD 10 mg/dL (7-18)
[2019-08-15 06:42] LABS: MAGNESIUM 2.6 mg/dL (1.8-2.4)
--- NOTE | 2019-08-15 06:53 | NUR ---
CRITICAL LAB VALUE PTT: 53.8
--- NOTE | 2019-08-15 07:09 | NUR ---
RECIVED PT ON VENT WITH SETTINGS CHARTED BREATH SOUNDS PRESENT BILAT COARSE SEDATION VACATION STARTED 0600 PLACED PT ON STB PEEP 5 PS 8 PER WEANING AMBU BAG BEDSIDE VENT PLUGGED INTO RED OUTLET WILL CONTINUE TO MONITOR PT ON VENT
--- NOTE | 2019-08-15 07:15 | NUR ---
RECEIVED BEDSIDE REPORT FROM NON PROFIT JOB TITLES NURSE. PT IS OFF PROPOFOL, ETT TO VENT ON CPAP TRIAL, FLACC 0. OX1. NO S/S OF DISTRESS, LUNG SOUNDS RHONCHI. SR ON CREATIVE INTERN, CAP REFILL <2 SEC. BOWEL SOUNDS ACTIVE. NGT TO RIGHT NARES, AUSCULTATED FOR POSITIVE PLACEMENT, 60ML RESIDUAL. REYES CATHETER IN PLACE DRAINING CLEAR YELLOW URINE. ON SOFT WRISTS RESTRAIN, NO SIGNS OF INJURY. BUE BRUISE NOTED. GENERALIZED WEAKNESS. SKIN IS WARM AND DRY. SACRAL REDNESS WITH OPTIFOAM IN PLACE. PICC LINE TO RIGHT UPPER ARM, PATENT AND ASYMPTOMATIC, RUNNING NS AT 90 ML/HR. IV TO LEFT WRIST, 20GA, PATENT AND ASYMPTOMATIC, RUNNING HEPARIN DRIP AT 500 UNITS/HR. ORAL CARE PROVIDED, HOB ELEVATED TO 35 DEGREES, SAFETY MEASURES IN PLACE.
--- NOTE | 2019-08-15 08:01 | NUR ---
REPOSITIONED PT FOR COMFORT.
--- NOTE | 2019-08-15 08:30 | NUR ---
pt extubated sxn pt orally pt with good cough hhn rx given placed opn 2lpm nc will continue to monitrr pt spo2 .98
[2019-08-15] MEDS: ENTACAPONE 200 MG TAB PO SCH ×2 (08:33→20:24)
[2019-08-15] MEDS: CARBIDOPA/LEVODOPA 25/100 MG 1 TAB PO SCH ×4 (08:34→20:27)
[2019-08-15] MEDS: LACTOBACILLUS RHAMNOSUS GG 1 EACH CAP PO SCH (08:35)
[2019-08-15] MEDS: PANTOPRAZOLE 40 MG INJ VIAL IVP SCH (08:35)
[2019-08-15] MEDS: LACTULOSE 20 GM/30 ML UDC PO SCH ×2 (08:35→20:24)
[2019-08-15] MEDS: METHENAMINE HIPPURATE PO SCH ×2 (08:35→20:28)
[2019-08-15] MEDS: FERROUS SULFATE 325 MG TABEC PO SCH (08:36)
[2019-08-15] MEDS: MIDODRINE 5 MG TAB PO SCH ×3 (08:36→16:52)
[2019-08-15] MEDS: ASCORBIC ACID 500 MG TAB PO SCH (08:37)
[2019-08-15] MEDS: ALBUTEROL SULFATE/IPRATROPIU 3 ML SOL IH PRN (08:37)
[2019-08-15] MEDS ORDERED: LACTOBACILLUS RHAMNOSUS GG 1 EACH CAP PO SCH (09:00)
[2019-08-15] MEDS: hePARIN / DEXT 5% PREMIX 250 ML IV SCH (09:43)
[2019-08-15] MEDS: TERIPARATIDE 600 MCG/2.4 ML SUBQ SCH (10:00)
--- NOTE | 2019-08-15 10:02 | NUR ---
REPOSITIONED PT FOR COMFORT. ADEQUATE URINE OUTPUT. PT IS ORIENTED TO NAME AND PLACE, BUT VERY LETHARGIC AND DROWSY.
--- NOTE | 2019-08-15 10:57 | NUR ---
DISCHARGE PLANNIN YO FEMALE PATIENT FROM [facility] FOR SOB X 1 DAY. PAST MEDICAL HISTORY INCLUDE PARKINSON'S, IBS AND HTN. INITIAL DIAGNOSIS OF RESPIRATORY FAILURE. CURRENT LABS INCLUDE WBC 13.0, H/H 8.0/23.8, NA/K 144/3.1, MAG 2.6. OCCULT BLOOD POSITIVE. GI CONSULT WITH DR. AMAYA FOR GI BLEED, ANEMIA. CARDIO CONSULT WITH DR. FRITZ FOR R/O ACS. PULMO CONSULT WITH DR. ROSALSE FOR RESPIRATORY FAILURE. PATIENT WAS EXTUBATED TODAY AND WAS PLACED ON O2 AT 2LPM/NC SAT 98%. ON ZOSYN. DC PLAN PENDING ON PATIENT'S RESPONSE TO TREATMENT. Addendum: 08/16/19 at 1537 by Sahra Terry CM DC PLANNING: MILTON WARD SEEN PT ,CONTINUE MECHANICAL VENTILATION ,CONTINUE HEPARIN DRIP CXR SHOWED INCREASED LET BASILAR OPACITY AND SMALL LEFT PLEURAL EFFUSION, INCREASED BP 167/80 ADMINISTERED HYDRALAZINE, CONTINUE NGT FEEDING AND IV ABX ZOSYN. CM TO FOLLOW. Addendum: 08/18/19 at 1721 by Chrissy Scales CM Possible transfer to [facility]. Transportation on will call with [facility] pending room number and accepting physician. Family aware. SOLOMON Caldwell/[facility] Addendum: 08/18/19 at 1733 by Debbie Sanchez CM LATE ENTRY: RECEIVED AN ORDER FOR LTAC EVAL. MET WITH THE PATIENT'S SISTER NIKOLE AT THE BEDSIDE TO DISCUSS PLAN, ABLE TO VERBALIZE UNDERSTANDING AND AGREEABLE TO THE PLAN. SHE ALSO STATED THAT SHE WANTED TO CHANGE THE CODE STATUS TO DNR. ALL QUESTIONS AND CONCERNS, ANSWERED, DR MORALES AT THE BEDSIDE WELL. PJ SIGNED TO DNR. Addendum: 08/18/19 at 1735 by Debbie Sanchez CM SHARA CAME AND EVALUATED THE PATIENT AND IS ABLE TO ACCEPT. PER MOISES PATIENT WILL GO TO [facility]. TRANSPORT SET UP FOR WILL CALL WITH [facility]. Addendum: 08/19/19 at 1141 by Debbie Sanchez CM MET WITH THE PATIENT'S NEPHEW SIMRAN, HE STATED THEY ARE LEANING TOWARDS HOSPICE. I ASKED HIM IF THEY HAVE ANY PREFERENCE. HE ANSWERED NO. I ALSO INFORMED HIM THAT I CAN PROVIDE BROCHURES TO CHOOSE FROM, HOWEVER, HE WANTS ME TO WAIT FOR HIS MOTHER TO DECIDE. Addendum: 08/19/19 at 1144 by Debbie Sanchez CM MET WITH THE PATIENT'S SISTER NIKOLE AND NEPHEW SIMRAN AT THE BEDSIDE. PROVIDED THEM WITH THE CHOICE LETTER, IM FORM AND BROCHURES FROM HOSPICE AGENCIES. SONIA SANCHEZ, [facility], [facility]. THEY STATED THEY WILL LOOK INTO IT AND WILL GIVE ME A CALL SOON THEY FIND ONE. Addendum: 08/19/19 at 1440 by Chrissy Gutiérrez I was informed by both patient's sister Nikole and patient's nephew Simran they would like us to contact [facility] so they can meet with a liaison. I called and spoke with Richar from [facility] . Per Richar, she will come today and meet with patient's sister Nikole and patient's nephew Nikole Perdomo and Simran made aware. Addendum: 08/19/19 at 1507 by Debbie Sanchez CM VINAYAK TAFOYA INFORMED ME THAT PATIENT'S FAMILY DECIDED FOR A HOSPICE. MET WITH THE PATIENT'S SISTER NIKOLE AT THE BEDSIDE AND CONFIRMED THAT THEY WANT A HOSPICE. CONTACTED RICHAR SANTIAGO OF [facility] AT [phone] REGARDING REFERRAL. SHE STATED SHE IS ON HER WAY TO THE HOSPITAL TO MEET WITH THE FAMILY. SHE ALSO PROVIDED ME WITH THE FAX NUMBER [phone]. REFERRAL SENT. Addendum: 08/19/19 at 1508 by Debbie Sanchez CM TANISHA MADE AWARE.
[2019-08-15] MEDS ORDERED: POTASSIUM PHOSPHATE 15 MM in NACL 0.9% 250 ML IV SCH (11:00)
[2019-08-15] MEDS: RIVASTIGMINE 9.5 MG/24 HR PATCH TP SCH (12:04)
--- NOTE | 2019-08-15 12:55 | NUR ---
MADE RT AWARE LUNGS SOUND RHONCHI AND PT HAS SOME SECRETION THAT SHE TRIED TO COUGH UP.
--- NOTE | 2019-08-15 13:34 | NUR ---
ADJUSTED FEEDING RATE TO 45ML/HR AND H2O FLUSH AT 30ML Q4H
--- NOTE | 2019-08-15 13:48 | NUR ---
SXN TRACHEA VIA ORAL AIRWAY WITH MIN TO MOD AMT REDDISH SECS
--- NOTE | 2019-08-15 14:18 | NUR ---
08/15/19 RD FOLLOW UP COMPLETED PLEASE REFER TO NUTRITION ASSESSMENT UNDER CARE ACTIVITY FOR ESTIMATED NUTRITIONAL NEEDS. 1. RECOMMEND TO INCREASE TUBE FEEDING RATE OF JEVITY TO 45 ML/HR X 24 HR -THIS WILL PROVIDE 1080 ML OF VOLUME, 1296 KCAL AND 60 GM OF PROTEIN WHICH MEETS 100% OF ESTIMATED NEEDS 2. IF PATIENT IS EXTUBATED CONSIDER ORDERING A SWALLOW EVALUATION TO INITIATE A PO DIET 3. RD TO FOLLOW-UP 2-3 DAYS, HIGH RISK JENNIFER PEOPLES RD
--- NOTE | 2019-08-15 15:30 | NUR ---
PT'S SISTER FROM [place] CAME TO VISIT. PT TRYING TO TALK, BUT VOICE IS COARSE. TOLD PT TO REST TODAY AND WAIT FOR ST EVAL TOMORROW. PT AGREED.
--- NOTE | 2019-08-15 16:10 | NUR ---
PT. IS FOR LOW LEWIS SCALE AT RISK, CONTINUE TO FOLLOW PRESSURE ULCER PREVENTION INTERVENTIONS. BLANCHABLE REDNESS TO SACRALCOCCYX -APPLY OPTIFOAM TO SACRALCOCCYX PREVENTION -TURN AND REPOSITION PATIENT Q 2H -ASSESS AND MONITOR SKIN CONDITION DURING POSITION CHANGE -OFFLOAD BILATERAL HEELS BY PLACING PILLOWS UNDER CALVES AT ALL TIMES, UNLESS OTHERWISE CONTRAINDICATED -PRESSURE REDISTRIBUTION BY PLACING PILLOWS AND OFFLOADING SACRALCOCCYX -KEEP SKIN CLEAN AND DRY AT ALL TIMES.
[2019-08-15 18:15] LABS: PHOSPHORUS 2.5 mg/dL (2.5-4.9); POTASSIUM 3.8 mmol/L (3.5-5.1)
--- NOTE | 2019-08-15 18:57 | NUR ---
ENCOURAGED PT TO COUGH. PT IS ALERT AND FOLLOWING DIRECTIONS.
--- NOTE | 2019-08-15 18:57 | NUR ---
received pt alert and awake on RA. pt placed on 2lnc. pt b/s sound course. saturation 98%. will continue to monitor
--- NOTE | 2019-08-15 19:25 | NUR ---
RECEIVED REPORT FROM DAYSHIFT NURSE AT PATIENTS BEDSIDE. PATIENT SITTING UP IN BED, AWAKE AND ALERT. ALERT TO NAME AND PLACE. ABLE TO FOLLOW COMMANDS AND MAKE NEEDS KNOWN. SPEECH IS VERY GARBLED, SOME SENTENCES ARE INCOMPREHENSIBLE. BECOMES FATIGUED WITH FULL SENTENCES. ABLE TO NOD HEAD YES AND NO. ON NASAL CANNULA @ 2LPM, SATURATIONS ARE 100%, LUNG SOUNDS ARE COARSE/RHONCHI. SYMMETRICAL CHEST RISE WITH UNLABORED BREATHING. S1S2, SINUS TACH ON MONITOR, HEART RATE ELEVATED AT 106BPM. RIGHT NARE NGT IN PLACE TO TUBE FEEDING, JEVITY 1.2 @ 45ML/HR. RIGHT UPPER ARM PICC IN PLACE, DOUBLE LUMEN, INFUSING NS @ 90ML/HR. LEFT WRIST 20G, FLUSHED PATENT AND ASYMPTOMATIC, INFUSING HEPARIN DRIP AT 500 UNITS/HR. ABDOMEN SOFT AND NONTENDER, ACTIVE BOWEL SOUNDS. SKIN INTACT, SLIGHT REDNESS NOTED AT SACRUM, BLANCHABLE RED. OPTIFOAM DRESSING REINFORCED. MULTIPLE BIRTHMARKS/MOLES OF VARIOUS SIZES NOTED ON ABDOMEN AND CHEST. UPPER EXTREMITIES WITH BRUISING NOTED, AND GENERALIZED EDEMA. BILATERAL SOFT WRIST RESTRAINTS NOTED, SKIN AND PERFUSION WITHIN NORMAL LIMITS. REYES CATHETER IN PLACE WITH YELLOW URINE AND SOME SEDIMENT NOTED. LOWER EXTREMITIES ARE ELEVATED WITH ONE PILLOW EACH SIDE. PATIENT UPDATED ON CARE PLACE, ORIENTED TO CALL LIGHT, WITHIN REACH, SIDERAILS UPx3. WILL CONTINUE TO MONITOR.
--- NOTE | 2019-08-15 20:15 | NUR ---
REMOVED RESTRAINTS TO ASSESS SKIN AND NEED FOR RESTRAINTS. PATIENT ABLE TO SQUEEZE/FILTER OPERATOR WITH BOTH HANDS. ABLE TO RAISE RIGHT ARM MIDWAY TO CHEST WITH GOOD EFFORT. LEFT ARM WITH SEVERE WEAKNESS, CANNOT LIFT OFF BED. PATIENT ORIENTED ON NEED FOR NASAL CANNULA AND NGT. VERBALIZES UNDERSTANDING, AGREES TO NOT ATTEMPT TO PULL ANY EQUIPMENT. RESTRAINTS REMOVED, ALTERNATIVE MEASURES EFFECTIVE. PATIENT CALM AND COOPERATIVE.
[2019-08-15] MEDS: OLANZapine 2.5 MG TAB PO SCH (20:24)
[2019-08-15] MEDS: ATORVASTATIN 20 MG TAB PO SCH (20:24)
--- NOTE | 2019-08-15 21:43 | NUR ---
PATIENT COMPLAINING SHE IS VERY HUNGRY. EXPLAINED TO PATIENT NGT IN PLACE AND IS CONNECTED TO TUBE FEEDING. ORIENTED TO POST EXTUBATION PROTOCOL AND SWALLOW EVAL WILL BE PERFORMED TOMORROW. ENCOURAGED PATIENT TO COUGH UP SECRETIONS, PATIENT IS TOO WEAK, NO OUTPUT BUT VERY AUDIBLE CRACKLES/WET RHONCHI HEARD. PATIENT VERBALIZES UNDERSTANDING. HOB HIGH FOWLERS, NASAL CANNULA 2LPM.
--- NOTE | 2019-08-15 23:45 | NUR ---
RESIDENT MD MADE AWARE OF PATIENTS HIGH BLOOD PRESSURE. CURRENTLY 167/80, RECHECKED, 163/86. PENDING NEW ORDERS.
[2019-08-16] VITALS (14 sets, daily range): BP systolic 134–169; BP diastolic 65–88
--- NOTE | 2019-08-16 00:01 | NUR ---
CALLED RT TO MAKE AWARE THAT PATIENTS WORK OF BREATHING IS INCREASING AND PATIENT CONTINUES TO NOT BE ABLE TO COUGH UP SECRETIONS. LOUD COARSE RHONCHI HEARD. SATURATIONS WITHIN NORMAL LIMITS. OVERALL APPEARANCE IS DISTRESSED.
--- NOTE | 2019-08-16 00:15 | NUR ---
orally sx moderate amount of thick white,brown secretions. rn kenzie at bedside
--- NOTE | 2019-08-16 00:30 | NUR ---
CALLED RESIDENT MD TO ENDORSE RT's RECOMMENDATIONS, NEW ORDERS CONFIRMED FOR ABG's, MUCOMYST/PULMICORT BREATHING TREATMENTS, AND CHEST XRAY. ALSO HYPERTENSIVE MED ORDERS PENDING ALSO. WILL CARRY OUT.
[2019-08-16] MEDS ORDERED: hydrALAZINE 20 MG/ML VIAL IVP PRN (00:35)
[2019-08-16] MEDS ORDERED: ACETYLCYSTEINE 10% (100 MG/ML) 100 MG/ML VIAL INH SCH (00:35)
[2019-08-16] MEDS: ALBUTEROL SULFATE/IPRATROPIU 3 ML SOL IH SCH ×4 (00:42→19:10)
[2019-08-16] MEDS: BUDESONIDE 0.25 MG/2 ML NEBU INH SCH ×2 (01:17→07:35)
--- NOTE | 2019-08-16 02:10 | NUR ---
PATIENT IS MORE RELAXED, CONTINUED ON NASAL CANNULA AT 2LPM. HOB IN HIGH FOWLERS POSITION. CONTINUED TO ENCOURAGE DEEP COUGHING. VERBALIZES UNDERSTANDING. CHEST XRAY COMPLETE.
--- NOTE | 2019-08-16 04:30 | NUR ---
NGT TO TUBE FEEDING. CHECKED RESIDUALS, 200ML. PATIENT NOT TOLERATING FEEDING WELL. NO BM NOTED WELL. HOLD FEEDING AT THIS TIME, FOLLOWUP. TURNED AND REPOSITIONED PATIENT. TOLERATED WELL. PATIENT STABLE, HEART RATE SINUS RHYTHM, SBP<170, WILL CONTINUE TO MONITOR.
[2019-08-16] MEDS: PIPERACILLIN/TAZOBACTAM 3.375 GM in DEXTROSE 5% 50 ML IV SCH ×3 (04:42→21:57)
--- NOTE | 2019-08-16 05:50 | NUR ---
SPONGE BATH, SKIN CARE, AND REYES CARE PROVIDED. PATIENT TOLERATED WELL. REINFORCED OPTIFOAM DRESSING AT SACRUM, SKIN INTACT, SLIGHT BLANCHABLE REDNESS NOTED. NO BOWEL MOVEMENT. BUE GENERALIZED EDEMA. LARGE MOLES/BIRTHMARKS ACROSS CHEST AND ABDOMEN. INTACT. BROWN IN COLOR. PROVIDED ORAL CARE, LARGE AMOUNT OF BLOODY SECRETIONS SUCTIONED ORALLY, ENCOURAGED PATIENT TO COUGH SUCTIONING. PATIENT REPORTS FEELING BETTER HAVE 2 SUCTION ATTEMPTS. BED IN LOWEST POSITION, LOCKED AND HOB HIGH FOWLERS. ALL NEEDS MET AT THIS TIME.
--- NOTE | 2019-08-16 06:00 | NUR ---
LABS AND PTT DRAWN FOR 24 HR HEPARIN PROTOCOL.
[2019-08-16 06:12] LABS: BASOPHILS % (AUTO) 0.2 % (0.0-2.0); EOSINOPHILS # (AUTO) 0.1 K/uL (0-0.4); EOSINOPHILS % (AUTO) 0.7 % (0.0-4.0); HEMATOCRIT 22.4 % (36-48); HEMOGLOBIN 7.5 g/dL (12.0-16.0); LYMPHOCYTES # (AUTO) 1.2 K/uL (2.5-16.5); LYMPHOCYTES % (AUTO) 10.9 % (20.5-51.1); MEAN CORPUSCULAR HEMOGLOBIN 31 pg (27-31); MEAN CORPUSCULAR HGB CONC 34 g/dL (33-37); MEAN CORPUSCULAR VOLUME 92.2 fL (80-94); MONOCYTES # (AUTO) 0.7 K/uL (0.8-1.0); NEUTROPHILS # (AUTO) 9.2 K/uL (1.8-7.7); NEUTROPHILS % (AUTO) 82.2 % (42.2-75.2); PLATELET COUNT (AUTO) 249 K/uL (140-450); RED BLOOD CELL COUNT(AUTO) 2.43 MIL/uL (4.20-5.40); RED CELL DISTRIBUTION WIDTH 14.1 % (11.6-13.7); WHITE BLOOD COUNT (AUTO) 11.2 K/uL (4.8-10.8)
[2019-08-16 06:51] LABS: ANION GAP 11.3 (8-16); CARBON DIOXIDE 23.2 mmol/L (21-32); CHLORIDE 113 mmol/L (98-107); CREATININE 0.6 mg/dL (0.6-1.3); GLUCOSE 130 mg/dL (74-106); POTASSIUM 3.5 mmol/L (3.5-5.1); SODIUM SERUM 144 mmol/L (136-145); UREA NITROGEN, BLOOD 9 mg/dL (7-18)
[2019-08-16 06:55] LABS: MAGNESIUM 2.5 mg/dL (1.8-2.4); PHOSPHORUS 1.7 mg/dL (2.5-4.9)
--- NOTE | 2019-08-16 07:30 | NUR ---
RECEIVED REPORT FROM PM SHIFT NURSE AT PATIENTS BEDSIDE. PATIENT LETHARGIC, ABLE TO USE MOUTH WORDS TO ANSWER YES NO QUESTIONS BUT DOES NOT OPEN EYES. ON NASAL CANNULA @ 2LPM, SATURATIONS ARE 93-95%, LUNG SOUNDS ARE RHONCHI TO RIGHT LOBE. SYMMETRICAL CHEST RISE WITH UNLABORED BREATHING. S1S2, SINUS TACH ON MONITOR 110S, PT HAS RIGHT NARE NGT IN PLACE . TUBE FEEDING HOLD PER PM SHIFT RN DUE TO RESIDUAL 190 CC. RIGHT UPPER ARM PICC IN PLACE, DOUBLE LUMEN, INFUSING NS @ 90ML/HR. LEFT WRIST 20G, FLUSHED PATENT AND ASYMPTOMATIC, INFUSING HEPARIN DRIP AT 500 UNITS/HR. ABDOMEN SOFT AND NONTENDER, ACTIVE BOWEL SOUNDS. SKIN INTACT, SLIGHT REDNESS NOTED AT SACRUM, BLANCHABLE RED. OPTIFOAM DRESSING REINFORCED. MULTIPLE MOLES OF VARIOUS SIZES NOTED ON ABDOMEN AND CHEST. UPPER EXTREMITIES WITH BRUISING AND EDEMA NOTED. REYES CATHETER IN PLACE WITH YELLOW URINE AND SOME SEDIMENT NOTED. LOWER EXTREMITIES ARE ELEVATED WITH ONE PILLOW EACH SIDE. SIDE RAILS UP. WILL CONTINUE TO MONITOR.
[2019-08-16] MEDS: NACL 0.9% 1,000 ML IV SCH ×2 (07:53→19:00)
[2019-08-16] MEDS: ASCORBIC ACID 500 MG TAB PO SCH (08:13)
[2019-08-16] MEDS: CARBIDOPA/LEVODOPA 25/100 MG 1 TAB PO SCH ×4 (08:13→19:40)
[2019-08-16] MEDS: FERROUS SULFATE 325 MG TABEC PO SCH (08:13)
[2019-08-16] MEDS: LACTOBACILLUS RHAMNOSUS GG 1 EACH CAP PO SCH (08:14)
--- NOTE | 2019-08-16 08:15 | NUR ---
TURNED AND REPOSITIONED PT. RESIDUAL CHECKED 0. RESUMED TUBE FEEDING. ORAL CARE AND F/C CARE GIVEN.
[2019-08-16] MEDS: LACTULOSE 20 GM/30 ML UDC PO SCH ×2 (08:16→21:55)
[2019-08-16] MEDS: PANTOPRAZOLE 40 MG INJ VIAL IVP SCH (08:16)
[2019-08-16] MEDS: METHENAMINE HIPPURATE PO SCH ×2 (08:18→21:57)
[2019-08-16] MEDS: ENTACAPONE 200 MG TAB PO SCH ×2 (08:19→21:56)
[2019-08-16] MEDS: TERIPARATIDE 600 MCG/2.4 ML SUBQ SCH (08:56)
--- NOTE | 2019-08-16 10:15 | NUR ---
TURNED AND REPOSITIONED PT. PT SISTER CAME TO VISIT PT. PT OPENS EYES, ABLE TO FOLLOW SIMPLE COMMANDS AT THIS TIME. ASKED PT DOES SHE HAVE ANY PAIN OR DISCOMFORT. PT STATED SHE DOES NOT HAVE ANY PAIN. WILL CONTINUE TO MONITOR.
[2019-08-16] MEDS: RIVASTIGMINE 9.5 MG/24 HR PATCH TP SCH (11:24)
[2019-08-16] MEDS ORDERED: POTASSIUM PHOSPHATE 15 MM in NACL 0.9% 250 ML IV SCH (12:00)
--- NOTE | 2019-08-16 12:00 | NUR ---
TURNED AND REPOSITIONED PT. RESIDUAL CHECKED 50. RETURNED IT BACK. SUCTIONED PT WITH SMALL AMOUNT OF CREAMY SECRETION. SISTER AT BEDSIDE.
[2019-08-16] MEDS: ACETYLCYSTEINE 10% (100 MG/ML) 100 MG/ML VIAL INH SCH ×2 (12:07→19:10)
[2019-08-16] MEDS: hePARIN / DEXT 5% PREMIX 250 ML IV SCH (13:32)
--- NOTE | 2019-08-16 15:00 | NUR ---
PT RESTING IN BED. HR SR-ST. NO S/S OF RESPIRATORY DISTRESS NOTED. ASKED PT DOES SHE HAVE ANY PAIN. PT STATED NO. SISTER AT BEDSIDE.
--- NOTE | 2019-08-16 18:30 | NUR ---
PT AWAKE, ALERT. ABLE TO FOLLOW SIMPLE COMMANDS. BED SHEET CHANGED/ BED BATH GIVEN. PT TOLERATED WELL.
[2019-08-16] MEDS ORDERED: ACETYLCYSTEINE 10% (100 MG/ML) 100 MG/ML VIAL ONE (19:06)
--- NOTE | 2019-08-16 19:15 | NUR ---
PT ON 2L OXYGEN NC NGT TO TUBE FEEDING JEVITY 1.2 45 CC WITH 30 H20 Q4H SWELLING NOTED ON BUE BP CUFF ON LEFT CALF PERRL BILATERALLY. COARSE LUNGS BILATERALLY. RT AT BEDSIDE BOWEL SOUNDS NOTED IN ALL 4 QUAD. NG TUBE IN PROPER PLACE BRUISING NOTED ON BODY HEPARIN NOTED ON 500 UNITS/HOUR NS @ 90 CC/HR PICC LINE RIGHT UPPER ARM DOUBLE LUMEN RUNNING IVF L WRIST 20G RUNNING HEPARIN. DENIES PAIN "IM FINE" SUCTIONED MOUTH ORAL CARE PERFORMED AFEBRILE WILL CONTINUE TO MONITOR NO S/S OF DISTRESS NOTED
--- NOTE | 2019-08-16 19:28 | NUR ---
SX OUT MODERATE AMOUNT OF THICK RED SECRETION ORALLY FROM PT. PT SOUNDED ALOT MORE CLEAR AFTER SX. REBECCA TURNER AT BEDSIDE
--- NOTE | 2019-08-16 21:00 | NUR ---
SX OUT MODERATE AMOUNT OF THICK BLOODY SECRETION. RN AT BEDSIDE
--- NOTE | 2019-08-16 21:00 | NUR ---
RT AT BEDSIDE
--- NOTE | 2019-08-16 21:00 | NUR ---
TOLERATED MEDICATION PASS WELL. NO RESIDUAL. NGT IN PLACE. PATIENT TALKING TO STAFF. VSS. NO SOB OR DISTRESS NOTED
[2019-08-16] MEDS: OLANZapine 2.5 MG TAB PO SCH (21:56)
[2019-08-16] MEDS: ATORVASTATIN 20 MG TAB PO SCH (21:57)
--- NOTE | 2019-08-16 22:38 | NUR ---
RT AT BEDSIDE
--- NOTE | 2019-08-16 23:25 | NUR ---
RT AT BEDSIDE
[2019-08-17] VITALS (18 sets, daily range): BP systolic 123–164; BP diastolic 72–99
--- NOTE | 2019-08-17 00:04 | NUR ---
MD STEELE AT BEDSIDE. NOTIFIED OF SWELLING OF BUE AND UPDATED ON STATUS
[2019-08-17] MEDS ORDERED: ACETYLCYSTEINE 10% (100 MG/ML) 100 MG/ML VIAL ONE (00:59)
[2019-08-17] MEDS: ALBUTEROL SULFATE/IPRATROPIU 3 ML SOL IH SCH ×4 (01:03→18:40)
--- NOTE | 2019-08-17 05:00 | NUR ---
MORNING CARE PERFORMED. CATHETER CARE PERFORMED. PATIENT TOLERATED WELL. AAOX2. TALKING ABOUT SISTER. NO INJURIES NOTED. WILL CONTINUE TO MONITOR.
[2019-08-17] MEDS: NACL 0.9% 1,000 ML IV SCH ×3 (05:44→23:30)
[2019-08-17] MEDS: PIPERACILLIN/TAZOBACTAM 3.375 GM in DEXTROSE 5% 50 ML IV SCH ×3 (05:44→21:21)
[2019-08-17 06:32] LABS: BASOPHILS % (AUTO) 0.3 % (0.0-2.0); EOSINOPHILS # (AUTO) 0.1 K/uL (0-0.4); EOSINOPHILS % (AUTO) 1.3 % (0.0-4.0); HEMATOCRIT 21.9 % (36-48); HEMOGLOBIN 7.4 g/dL (12.0-16.0); LYMPHOCYTES # (AUTO) 1.3 K/uL (2.5-16.5); MEAN CORPUSCULAR HEMOGLOBIN 32 pg (27-31); MEAN CORPUSCULAR HGB CONC 34 g/dL (33-37); MEAN CORPUSCULAR VOLUME 93.5 fL (80-94); MONOCYTES # (AUTO) 0.6 K/uL (0.8-1.0); MONOCYTES % (AUTO) 5.8 % (1.7-9.3); NEUTROPHILS # (AUTO) 7.7 K/uL (1.8-7.7); PLATELET COUNT (AUTO) 276 K/uL (140-450); RED BLOOD CELL COUNT(AUTO) 2.35 MIL/uL (4.20-5.40); WHITE BLOOD COUNT (AUTO) 9.8 K/uL (4.8-10.8)
[2019-08-17] MEDS: ACETYLCYSTEINE 10% (100 MG/ML) 100 MG/ML VIAL INH SCH ×3 (06:47→18:40)
[2019-08-17] MEDS: BUDESONIDE 0.25 MG/2 ML NEBU INH SCH ×2 (07:02→18:40)
[2019-08-17 07:09] LABS: CARBON DIOXIDE 20.6 mmol/L (21-32); CHLORIDE 115 mmol/L (98-107); CREATININE 0.5 mg/dL (0.6-1.3); GLUCOSE 122 mg/dL (74-106); POTASSIUM 3.6 mmol/L (3.5-5.1); SODIUM SERUM 144 mmol/L (136-145); UREA NITROGEN, BLOOD 10 mg/dL (7-18)
--- NOTE | 2019-08-17 07:10 | NUR ---
ENDORSED TO DAY SHIFT FOR STOOL SAMPLE IF POSSIBLE. VSS. STABLE CONDITION. "IM FINE" NO SOB NOTED
[2019-08-17 07:14] LABS: LYMPHOCYTES % (AUTO) 13.7 % (20.5-51.1); NEUTROPHILS % (AUTO) 78.9 % (42.2-75.2)
[2019-08-17 07:15] LABS: MAGNESIUM 2.4 mg/dL (1.8-2.4); PHOSPHORUS 1.9 mg/dL (2.5-4.9)
--- NOTE | 2019-08-17 07:30 | NUR ---
RECEIVED REPORT FROM PM SHIFT NURSE AT PATIENTS BEDSIDE. PATIENT LETHARGIC, MUMBLING BUT UNABLE TO UNDERSTAND PT. ON NASAL CANNULA @ 2LPM, SATURATIONS ARE 95-97%, BEDSIDE MONITOR S1S2, SINUS TACH ON MONITOR 105S, PT HAS RIGHT NARE NGT IN PLACE . RESIDUAL CHECKED 10 MLS. RETURNED IT BACK. RIGHT UPPER ARM PICC IN PLACE, DOUBLE LUMEN, INFUSING NS @ 90ML/HR. SWELLING AND BRUISES NOTED. BLOOD RETURN NOTED FROM DOUBLE LUMEN. LEFT WRIST 20G RUNNING HEPARIN AT 500 UNITS/HR. ABDOMEN SOFT AND NONTENDER, ACTIVE BOWEL SOUNDS. SKIN INTACT, SLIGHT REDNESS NOTED AT SACRUM, BLANCHABLE RED. OPTIFOAM DRESSING REINFORCED. MULTIPLE MOLES OF VARIOUS SIZES NOTED ON ABDOMEN AND CHEST. UPPER EXTREMITIES WITH BRUISING AND EDEMA NOTED AND RIGHT UPPER ARM IS MORE SEVERE THAN LEFT ARM. REYES CATHETER IN PLACE WITH YELLOW URINE AND SOME SEDIMENT NOTED. LOWER EXTREMITIES ARE ELEVATED WITH ONE PILLOW EACH SIDE. SIDE RAILS UP. WILL CONTINUE TO MONITOR.
[2019-08-17] MEDS: PANTOPRAZOLE 40 MG INJ VIAL IVP SCH (08:39)
[2019-08-17] MEDS: LACTOBACILLUS RHAMNOSUS GG 1 EACH CAP PO SCH (08:39)
[2019-08-17] MEDS: ASCORBIC ACID 500 MG TAB PO SCH (08:39)
[2019-08-17] MEDS: FERROUS SULFATE 325 MG TABEC PO SCH (08:39)
[2019-08-17] MEDS: CARBIDOPA/LEVODOPA 25/100 MG 1 TAB PO SCH ×4 (08:39→20:26)
[2019-08-17] MEDS: LACTULOSE 20 GM/30 ML UDC PO SCH ×2 (08:39→21:20)
[2019-08-17] MEDS: ENTACAPONE 200 MG TAB PO SCH ×2 (08:40→21:20)
[2019-08-17] MEDS: METHENAMINE HIPPURATE PO SCH ×2 (08:40→21:22)
--- NOTE | 2019-08-17 09:00 | NUR ---
central line dressing changed.
[2019-08-17] MEDS: TERIPARATIDE 600 MCG/2.4 ML SUBQ SCH (09:07)
--- NOTE | 2019-08-17 09:46 | NUR ---
APTT 37.4, PER PROTOCOL. GIVE 1500 UNITS BOLUS AND INCREASE HEPARIN FROM 500 UNITS/HR TO 600 UNITS/HR. CONFIRMED WITH PHARMACIST JOSE. CARRIED OUT.
--- NOTE | 2019-08-17 10:00 | NUR ---
PT'S SISTER AT BEDSIDE, UPDATED PT'S CONDITION.
[2019-08-17] MEDS: RIVASTIGMINE 9.5 MG/24 HR PATCH TP SCH (12:14)
[2019-08-17] MEDS ORDERED: POTASSIUM PHOSPHATE 15 MM in NACL 0.9% 250 ML IV SCH (12:30)
[2019-08-17] MEDS: FUROSEMIDE 40 MG/4 ML VIAL IVP SCH ×2 (13:36→21:21)
--- NOTE | 2019-08-17 14:03 | NUR ---
SUCTIONED PT WITH MODERATE AMOUNT OF SECRETION . PT TOLERATED WELL. SISTER AT BEDSIDE.
--- NOTE | 2019-08-17 17:00 | NUR ---
PT HAD LARGE AMOUNT OF LOOSE BM, CLEANED PT. WHOLE BED CHANGED. PT TOLERATED WELL.
--- NOTE | 2019-08-17 19:15 | NUR ---
CHANGE OF SHIFT REPORT GIVEN AT BEDSIDE BY DAY NURSE BANDAR. PATIENT HAS NASAL CANNULA ON 2 L. TOLERATING WELL. PERRLA BILATERALLY. LYING IN BED. NG TUBING IN RIGHT NARES NOTED. PATIENT HAS SYMMETRICAL RESPIRATIONS THAT ARE UNLABORED AT THIS TIME. LUNG SOUNDS COARSE. RT AT BEDSIDE. BREATHING TREATMENT BEING DONE. NO SOB OR DISTRESS NOTED. BOWEL SOUNDS ACTIVE IN ALL 4 QUADS. HR REGULAR. PATIENT HAS REDNESS ON SACRAL AREA, OPTIFOAM DRESSING FOR PRECAUTION. NON SKID SOCKS PRESENT WITH LEGS ELEVATED TO OFF PRESSURE HEELS. ARMS HAVE BRUISING BILATERALLY AND SWELLING NOTED. PITTING EDEMA +2 NOTED. PATIENT ALERT AND ORIENTED TO NAME AND PLACE. PATIENT OBEYS COMMANDS AND ABLE TO MAKE NEEDS KNOWN PATIENT STATES "IM TIRED" BED IN LOWEST POSITION. WILL CONTINUE TO MONITOR AT THIS TIME. PICC LINE IN BUSTER AND LEFT WRIST. RUNNING HEPARIN 700 UNITS (CHANGED WITH DAY NURSE) AND NS AT 90ML/HR. BACK FLOW NOTED. MD AWARE OF SWELLING. WILL CONTINUE TO MONITOR. PATIENT DENIES PAIN AT THIS TIME. REPOSITIONED AT THIS TIME. ORAL CARE PERFORMED
--- NOTE | 2019-08-17 19:16 | NUR ---
RECEIVED PATIENT ON 2L NASAL CANNULA, PULSE OX SAT 92%. PATIENT PRESENTS WITH DIFFUSE RHONCHI BREATH SOUNDS WITH AUDIBLE UPPER AIRWAY SECRETIONS. SCHEDULED BREATHING TREATMENTS ADMINISTERED. TOLERATED TXs WELL WITHOUT ADVERSE SIDE EFFECTS. CHEST PHYSIOTHERAPY DONE WITH BREATHING TREATMENTS. ORALLY SUCTIONED SMALL AMOUNT OF THICK, CREAMY SECRETIONS. NASOTRACHEALLY SUCTIONED MODERATE AMOUNT OF THICK, CREAMY SECRETIONS WITH MINIMAL BLEEDING. ORAL CARE DONE. INCREASED TO 3L NC, PULSE OX SAT 95%. WILL CONTINUE TO MONITOR CLOSELY.
--- NOTE | 2019-08-17 21:00 | NUR ---
MEDICATIONS ADMINISTERED PER MD ORDERS. PATIENTS NGT PLACEMENT CHECKED. PROPER PLACEMENT NOTED BY AUSCULTATION. RESIDUAL 5 CC NOTED. TOLERATED WELL. DENIES PAIN. WILL CONTINUE TOP MONITOR. NO SOB NOTED
[2019-08-17] MEDS: OLANZapine 2.5 MG TAB PO SCH (21:20)
[2019-08-17] MEDS: ATORVASTATIN 20 MG TAB PO SCH (21:20)
--- NOTE | 2019-08-17 22:30 | NUR ---
luke at bedside
--- NOTE | 2019-08-17 23:00 | NUR ---
1000 urine output yellow sediment
[2019-08-18] VITALS (17 sets, daily range): BP systolic 102–168; BP diastolic 54–94
[2019-08-18] MEDS: ALBUTEROL SULFATE/IPRATROPIU 3 ML SOL IH SCH ×4 (01:14→19:23)
[2019-08-18] MEDS: ACETYLCYSTEINE 10% (100 MG/ML) 100 MG/ML VIAL INH SCH ×3 (01:14→13:13)
--- NOTE | 2019-08-18 01:15 | NUR ---
lab draw ptt
--- NOTE | 2019-08-18 01:15 | NUR ---
1000 urine output yellow sediment
--- NOTE | 2019-08-18 01:38 | NUR ---
SCHEDULED BREATHING TREATMENTS ADMINISTERED. TOLERATED TXs WELL WITHOUT ADVERSE SIDE EFFECTS. CPT DONE WITH BREATHING TREATMENT. NASOTRACHEALLY SUCTIONED MODERATE AMOUNT OF THICK, CREAMY SECRETIONS POST TX & CPT WITHOUT INCIDENT. WILL CONTINUE TO MONITOR.
--- NOTE | 2019-08-18 02:10 | NUR ---
rt at bedside
[2019-08-18] MEDS: PIPERACILLIN/TAZOBACTAM 3.375 GM in DEXTROSE 5% 50 ML IV SCH ×3 (04:46→21:53)
--- NOTE | 2019-08-18 05:30 | NUR ---
600 urine output yellow sediment
--- NOTE | 2019-08-18 05:45 | NUR ---
took pictures of bilateral arms for bruising and sacral area. notified md. charted. in chart. patient denies pain. placed protective bandage for support skin intact at this time
--- NOTE | 2019-08-18 06:20 | NUR ---
dr. jones at bedside .order for skin protectant
[2019-08-18 06:32] LABS: ANION GAP 12.6 (8-16); CARBON DIOXIDE 24.6 mmol/L (21-32); CHLORIDE 106 mmol/L (98-107); CREATININE 0.6 mg/dL (0.6-1.3); GLUCOSE 190 mg/dL (74-106); POTASSIUM 3.2 mmol/L (3.5-5.1); SODIUM SERUM 140 mmol/L (136-145); UREA NITROGEN, BLOOD 10 mg/dL (7-18)
[2019-08-18 06:35] LABS: BASOPHILS % (AUTO) 0.2 % (0.0-2.0); EOSINOPHILS % (AUTO) 0.3 % (0.0-4.0); HEMATOCRIT 20.5 % (36-48); LYMPHOCYTES # (AUTO) 1.1 K/uL (2.5-16.5); LYMPHOCYTES % (AUTO) 9.2 % (20.5-51.1); MEAN CORPUSCULAR HEMOGLOBIN 31 pg (27-31); MEAN CORPUSCULAR HGB CONC 33 g/dL (33-37); MEAN CORPUSCULAR VOLUME 92.2 fL (80-94); MONOCYTES # (AUTO) 0.6 K/uL (0.8-1.0); MONOCYTES % (AUTO) 5.2 % (1.7-9.3); NEUTROPHILS # (AUTO) 9.9 K/uL (1.8-7.7); NEUTROPHILS % (AUTO) 85.1 % (42.2-75.2); PLATELET COUNT (AUTO) 307 K/uL (140-450); RED BLOOD CELL COUNT(AUTO) 2.22 MIL/uL (4.20-5.40); RED CELL DISTRIBUTION WIDTH 14.3 % (11.6-13.7)
[2019-08-18 06:37] LABS: MAGNESIUM 1.7 mg/dL (1.8-2.4); PHOSPHORUS 2.5 mg/dL (2.5-4.9)
[2019-08-18] MEDS: BUDESONIDE 0.25 MG/2 ML NEBU INH SCH ×2 (06:54→19:23)
--- NOTE | 2019-08-18 07:30 | NUR ---
RECEIVED BEDSIDE REPORT FROM ATTORNEY GENERAL NURSE, PT IS DROWSY, UNCLEAR WORDS, ABLE TO FOLLOW SIMPLE COMMANDS, VSS, FLACC 0, NO S/S OF DISTRESS, COARSE LUNG SOUNDS [place]. ON O2 AT 2L VIA NC, A-FIB ON SUPERVISOR DIALS, CAP REFILL <2 SEC, [place]. UE NON-PITTING EDEMA NOTED, SOFT ABDOMEN WITH ACTIVE BOWEL SOUNDS, NGT TO RIGHT NARES, FEEDING WITH JEVITY AT 45ML/HR, 5 ML RESIDUALS NOTED, REYES CATHETER IN PLACE WITH CLEAR YELLOW URINE VIA GRAVITY, GENERALIZED WEAKNESS NOTED, SKIN IS WARM AND DRY TO TOUCH, NO OPEN WOUNDS, REDNESS TO SACROCOCCYX AREA, PICC LINE TO RIGHT UPPER ARM, PATENT, RUNNING NS AT 90 ML/HR, IV TO LEFT WRIST, 18 GA, PATENT, RUNNING HEPARIN DRIP AT 800 UNITS/HR. HOB ELEVATED TO 30 DEGREES, SAFETY MEASURES IN PLACE, POSITION CHANGED FOR OFF LOAD PRESSURE, WILL CONTINUE TO MONITOR.
--- NOTE | 2019-08-18 07:35 | NUR ---
report given to day shift nurse. endorsed about skin protectant. endorsed ptt [id number] no sob no s/s of distress noted stable. vss
[2019-08-18 07:46] LABS: HEMOGLOBIN 6.8 g/dL (12.0-16.0)
[2019-08-18 08:08] LABS: WHITE BLOOD COUNT (AUTO) 11.6 K/uL (4.8-10.8)
[2019-08-18] MEDS ORDERED: MAG SULF 2000 MG/WATER PREMIX 50 ML IV SCH (09:00)
--- NOTE | 2019-08-18 09:00 | NUR ---
SCHEDULED MEDICATION GIVEN VIA NGT, PATIENT TOLERATED WELL.
[2019-08-18] MEDS: LACTULOSE 20 GM/30 ML UDC PO SCH ×2 (09:07→21:53)
[2019-08-18] MEDS: LACTOBACILLUS RHAMNOSUS GG 1 EACH CAP PO SCH (09:08)
[2019-08-18] MEDS: PANTOPRAZOLE 40 MG INJ VIAL IVP SCH (09:08)
[2019-08-18] MEDS: ASCORBIC ACID 500 MG TAB PO SCH (09:08)
[2019-08-18] MEDS: FERROUS SULFATE 325 MG TABEC PO SCH (09:08)
[2019-08-18] MEDS: ENTACAPONE 200 MG TAB PO SCH ×2 (09:09→21:54)
[2019-08-18] MEDS: FUROSEMIDE 40 MG/4 ML VIAL IVP SCH ×2 (09:09→21:53)
[2019-08-18] MEDS: CARBIDOPA/LEVODOPA 25/100 MG 1 TAB PO SCH ×4 (09:09→20:58)
[2019-08-18] MEDS: METHENAMINE HIPPURATE PO SCH ×2 (09:10→21:54)
[2019-08-18] MEDS: Z-GUARD PASTE TP SCH (09:11)
[2019-08-18] MEDS: TERIPARATIDE 600 MCG/2.4 ML SUBQ SCH (09:15)
[2019-08-18] MEDS: hePARIN / DEXT 5% PREMIX 250 ML IV SCH (09:33)
--- NOTE | 2019-08-18 10:00 | NUR ---
PATIENT IS RESTING IN BED, VSS, FLACC 0, PATIENT'S SISTER AND CAREGIVER FROM [facility] AT BEDSIDE
[2019-08-18] MEDS ORDERED: POTASSIUM CHLORIDE 40 MEQ, LIDOCAINE MPF 1% 25 MG in NACL 0.9% 250 ML IV SCH (11:00)
[2019-08-18] MEDS: NACL 0.9% 1,000 ML IV SCH (11:31)
--- NOTE | 2019-08-18 11:35 | NUR ---
BEDSIDE REPORT RECEIVED FROM NURSE DOMINGUEZ.
--- NOTE | 2019-08-18 11:58 | NUR ---
FIELD SUPPORT TECHNICIAN FROM [facility] HERE, SPEAKING WITH SISTER AT BEDSIDE.
--- NOTE | 2019-08-18 12:10 | NUR ---
PT RESTING QUIETLY IN NO ACUTE DISTRESS, 2L NC O2, RESP EVEN UNLABORED, BS WITH RHONCHI THROUGHOUT, ORAL CARE DONE, NO ORAL SECRETIONS, NGT FEED ONGOING AT 45ML/HR, REYES DRAINING TO GRAVITY, RE POSITIONED, VITALS STABLE ON MONITOR, WILL CONTINUE TO MONITOR
[2019-08-18] MEDS: FUROSEMIDE 20 MG TAB PO SCH ×2 (12:17→16:10)
[2019-08-18] MEDS: RIVASTIGMINE 9.5 MG/24 HR PATCH TP SCH (12:18)
--- NOTE | 2019-08-18 12:20 | NUR ---
SCHEDULED MEDICATIONS GIVEN, POSITION CHANGED, PT APPEARS COMFORTABLE IN NO ACUTE DISTRESS, VITALS STABLE ON MONITOR, WILL CONTINUE TO MONITOR.
--- NOTE | 2019-08-18 12:45 | NUR ---
SPEECH THERAPIST AT BEDSIDE FOR SWALLOW EVAL.
--- NOTE | 2019-08-18 13:53 | NUR ---
PRBC VERIFIED WITH 2RNs, LC/KIRSTIE, TRANSFUSION STARTED AT THIS TIME, WILL MONITOR CLOSELY FOR ANY REACTIONS.
--- NOTE | 2019-08-18 14:10 | NUR ---
*S.T. BEDSIDE SWALLOW EVAL COMPLETED* See report for details. Pt presents w/ severe oropharyngeal dysphagia c/b bolus holding, delayed initiation of pharyngeal swallow response, diminished laryngeal elevation with consistent wet vocal quality after swallows as well as weak coughing. Pt was also observed to desaturate from 96% to 89-90% w/ P.O. trials. Pt is deemed at high risk for aspiration. Recommend: 1) Continue NPO w/ non-oral means of nutrition/hydration/meds. 2) Swallow tx w/ P.O. trials, 3x/1 week. Will determine based on tolerance of P.O. trials whether pt is appropriate to advance to oral diet. D/w pt and sister at bedside results/recommendations and endorsed to REBECCA Stewart. Time [id number]
--- NOTE | 2019-08-18 15:20 | NUR ---
DR LIVINGSTON AT BEDSIDE, ALONG WITH DR TOTH, PT CONDITION DISCUSSED WITH SISTER.
--- NOTE | 2019-08-18 15:45 | NUR ---
REPOSITIONED, BED BATH GIVEN, DRY SHAMPOO'D HAIR, SACRAL AREA WITH DRY AGE SPOTS, OPTIFOAM CLEAN DRY INTACT.
--- NOTE | 2019-08-18 16:10 | NUR ---
BLOOD TRANSFUSION COMPLETED, NO S/S OF REACTIONS NOTED, ONE DOSE OF LASIX 20MG GIVEN GT, SECOND DOSE OF LASIX IS NOT NEEDED PER DR MORALES. CONTINUE SCHEDULED IV LASIX DUE AT [address] MORALES.
--- NOTE | 2019-08-18 17:00 | NUR ---
NTS MOD CREAMY SECRETIONS
--- NOTE | 2019-08-18 17:25 | NUR ---
08/18/19 RD FOLLOW UP COMPLETED PLEASE REFER TO NUTRITION ASSESSMENT UNDER CARE ACTIVITY FOR ESTIMATED NUTRITIONAL NEEDS. 1. CONTINUE JEVITY TO 45 ML/HR X 24 HR -THIS WILL PROVIDE 1080 ML OF VOLUME, 1296 KCAL AND 60 GM OF PROTEIN WHICH MEETS 100% OF ESTIMATED NEEDS VIA NUTRITION SUPPORT 2. CONTINUE WATER FLUSH 30 ML Q4H 3. CONSIDER ADVANCING TO PO DIET AFTER SWALLOW EVALUATION IS PERFORMED. 4. RD TO FOLLOW-UP 2-3 DAYS, HIGH RISK JENNIFER PEOPLES RD
--- NOTE | 2019-08-18 19:21 | NUR ---
REPORT GIVEN TO ODD TICKET CLERK NURSE FOR CONTINUE OF CARE, PT VSS, FLACC 0, NO S/S OF DISTRESS AT THIS TIME.
--- NOTE | 2019-08-18 19:30 | NUR ---
CHANGE OF SHIFT REPORT GIVEN BY DAY NURSE ALBERTO. STATES PATIENT STILL ON 2L OXYGEN VIA N/C. STATES STILL ON JEVITY 1.2 AT 45 ML/HR WITH H2O FLUSH OF 30 ML Q4H VIA NG TUBE WITH PROPER PLACEMENT CHECKED VIA RIGHT NARE. PERRLA NOTED. BRISK RXN TO PUPILS WITH LIGHT. STATES STILL PICC LINE BUSTER RUNNING 90 ML/HR OF NS. SWELLING IN BUE DECREASED. L WRIST LINE ACCESS PER NURSE. RUNNING INSULIN 900 UNITS/HR. LUNG SOUNDS RHONCHI BILATERALLY. RESPIRATIONS SYMMETRICAL AND UNLABORED. STATES SISTER PRESENT TODAY BUT HAS NOT DECIDED ON TRANSFER TO [place] AT THIS TIME. STATES WILL F/ U ON DAY SHIFT SUNDAY. STATES REPLACED POTASSIUM AND MAGNESIUM WITH 1 UNIT OF BLOOD GIVEN ON DAY SHIFT. TOLERATED WELL PER NURSE. STATES NEXT PTT DUE AT 0030. RT AT BEDSIDE AT THIS TIME. SKIN STILL BRUISED ON BUE WITH OPTIFOAM DRESSING ON SACRAL AREA AND REDNESS IN PERINEAL AREA. NO OPEN WOUNDS PER DAY NURSE AT THIS TIME. REPOSITIONED AT THIS TIME. ORAL CARE AT THIS TIME. PATIENT ALERT AND ORIENTED. OBEYS COMMANDS. ABLE TO MAKE NEEDS KNOWN. DENIES PAIN. BED IN LOWEST POSITION. SAFETY MEASURES IN PLACE. NON SKID SOCKS ON PATIENT. WILL CONTINUE TO MONITOR AT THIS TIME. VSS.
--- NOTE | 2019-08-18 19:40 | NUR ---
RECEIVED PATIENT ON 2L NASAL CANNULA, PULSE OX SAT 96%. PATIENT PRESENTS WITH RHONCHI WITH AUDIBLE UPPER AIRWAY SECRETIONS. SCHEDULED BREATHING TREATMENTS ADMINISTERED. TOLERATED TXs WELL WITHOUT ADVERSE SIDE EFFECTS. NASOTRACHEALLY SUCTIONED MODERATE AMOUNT OF THICK, CREAMY SECRETIONS. ORAL CARE DONE. WILL CONTINUE TO MONITOR.
[2019-08-18 19:43] LABS: BASOPHILS % (AUTO) 0.2 % (0.0-2.0); EOSINOPHILS # (AUTO) 0.1 K/uL (0-0.4); EOSINOPHILS % (AUTO) 0.5 % (0.0-4.0); HEMATOCRIT 27.2 % (36-48); HEMOGLOBIN 9.1 g/dL (12.0-16.0); LYMPHOCYTES # (AUTO) 1.9 K/uL (2.5-16.5); LYMPHOCYTES % (AUTO) 13.2 % (20.5-51.1); MEAN CORPUSCULAR HEMOGLOBIN 31 pg (27-31); MEAN CORPUSCULAR HGB CONC 33 g/dL (33-37); MEAN CORPUSCULAR VOLUME 92.2 fL (80-94); MONOCYTES # (AUTO) 0.8 K/uL (0.8-1.0); MONOCYTES % (AUTO) 5.6 % (1.7-9.3); NEUTROPHILS # (AUTO) 11.3 K/uL (1.8-7.7); NEUTROPHILS % (AUTO) 80.5 % (42.2-75.2); PLATELET COUNT (AUTO) 358 K/uL (140-450); RED BLOOD CELL COUNT(AUTO) 2.95 MIL/uL (4.20-5.40)
--- NOTE | 2019-08-18 21:50 | NUR ---
MEDICATION ADMINISTRATION PER MD ORDERS. PATIENT NOTIFIED OF MEDICATION AND VERBALLY STATED UNDERSTANDING. PLACEMENT OF NG TUBE CHECKED 3. RT AT BEDSIDE. NO SOB. VSS. WILL CONTINUE TO MONITOR. DENIES PAIN.
[2019-08-18] MEDS: ATORVASTATIN 20 MG TAB PO SCH (21:54)
[2019-08-18] MEDS: OLANZapine 2.5 MG TAB PO SCH (21:54)
--- NOTE | 2019-08-18 23:30 | NUR ---
CHRIST CALLED ,CLINICAL COORDINATOR, FROM [facility] SISTER CAME TO HER AND NOTIFIED HER THAT A NURSE HERE GAVE HER A LIST AND ASKED TO GIVE MORE OF PATIENTS AT HOME MEDS TO CONTINUE TO ADMINISTER IN [facility] ICU. STATED NURSE FROM [facility] STATED TO SISTER THAT WE RAN OUT. MEDICATION OK FOR TONIGHT SHIFT. WILL FOLLOW UP ON DAY SHIFT PHARMACY TO SEE IF ANY PRESENT IN PHARMACY. WILL ENDORSE TO DAY SHIFT NURSE.
--- NOTE | 2019-08-18 23:38 | NUR ---
PATIENT LYING IN BED. STATES DENIES PAIN. DENIES BEING HOT OR COLD "IM OK" DENIES TV. "LIGHT OFF" VSS. NO SOB OR DISTRESS NOTED. WILL CONTINUE TO MONITOR.
[2019-08-19] VITALS (13 sets, daily range): BP systolic 105–131; BP diastolic 55–82
--- NOTE | 2019-08-19 00:30 | NUR ---
went to draw ptt. patient oxygen saturation going down to 80s. patient denies pain and states "im ok" suctioned x2. small amount of white thick secretions expelled. patient obeyed when asked to cough. called rt .patient on 2L oxygen. went to high 80s with n/c at 2l. rt came to bedside. given bx tx with mask. pt saturations went to 90s. deep suction done. patient tolerating well. assisting rt when asked to cough. patient continues to deny any pain. denies any problems breathing. states " im fine" will continue to assist rt at bedside. ptt drawn and charge nurse taken to lab
[2019-08-19] MEDS: ALBUTEROL SULFATE/IPRATROPIU 3 ML SOL IH SCH ×4 (00:46→19:11)
--- NOTE | 2019-08-19 01:05 | NUR ---
PATIENT DESATURATED TO 80%. PLACED ON SIMPLE MASK AT 6LPM WITHOUT IMPROVEMENT. SCHEDULED BREATHING TREATMENT ADMINISTERED. TOLERATED TX WITHOUT ADVERSE SIDE EFFECTS. NASOTRACHEALLY SUCTIONED PATIENT WITHOUT INCIDENT. SUCTIONED LARGE AMOUNT OF THICK, CREAMY SECRETIONS. PLACED PATIENT ON 3L NASAL CANNULA. PULSE OX SAT 94%. WILL CONTINUE TO MONITOR.
--- NOTE | 2019-08-19 01:07 | NUR ---
COLIN CALLED FROM [facility] ASKED IF TRANSFER TO [facility] IN AM? TOLD HER THAT PER DAY SHIFT NURSE. THE SISTER OF PATIENT WAS STILL UNDETERMINED ON TRANSFER TO [facility] AND WILL F/U IN AM. NOTIFIED COLIN THAT WE WILL FOLLOW UP ON DAY SHIFT AND WILL ENDORSE TO DAY SHIFT NURSE PATIENT FINISHED BX TX AND SATURATIONS IN LOW-MID 90S. RT STILL AT BEDSIDE. ON OXYGEN 3L N/C AGAIN AT THIS TIME. HOLDING LOW 90S -MID 90S SATURATUION AT THIS TIME. PATIENT RESTING HER EYES AT THIS TIME. WILL CONTINUE TO MONITOR VSS. NO DISTRESS NOTED
--- NOTE | 2019-08-19 01:25 | NUR ---
PT HAS 1000 YELLOW SEDIMENT NOTED URINE IN F/C BAG
--- NOTE | 2019-08-19 02:07 | NUR ---
F/U PTT RESULT WITH LAB; NOT IN COMPUTER AT THIS TIME.DRAWN AT 0030.SPOKE WITH CUSTOMER SERVICE ANALYST.
--- NOTE | 2019-08-19 02:11 | NUR ---
64.8 APTT RESULT. PER PROTOCOL. NO CHANGE AT THIS TIME. CHARGE NURSE AWARE WILL CONTINUE TO MONITOR. VSS.
[2019-08-19] MEDS: NACL 0.9% 1,000 ML IV SCH ×2 (03:26→13:29)
--- NOTE | 2019-08-19 04:30 | NUR ---
PATIENT HAD BM. PATIENT CLEANED WITH DECK OFFICER. NO INJURY NOTED. NEW DRESSING CHANGE TO SACRAL AREA. PATIENT TOLERATED WELL. ORAL CARE. SPONGE BATH, CATHETER CARE. BED CHANGED. PATIENT STATES "I FEEL BETTER" NO SOB OR DISTRESS NOTED. VSS. WILL CONTINUE TO MONITOR.
[2019-08-19] MEDS: PIPERACILLIN/TAZOBACTAM 3.375 GM in DEXTROSE 5% 50 ML IV SCH ×3 (04:43→20:26)
--- NOTE | 2019-08-19 06:24 | NUR ---
RT AT BEDSIDE. CHARGE NURSE DRAWING BLOOD FOR 0630 PTT. VSS. NO SOB OR DISTRESS NOTED. WILL CONTINUE TO MONITOR
[2019-08-19] MEDS: BUDESONIDE 0.25 MG/2 ML NEBU INH SCH ×2 (06:31→19:11)
--- NOTE | 2019-08-19 07:20 | NUR ---
PT STABLE. ENDORSED THAT [facility] CALLED AND HER PLACE OF RESIDENCE ABOUT MEDS. ENDORSED ABOUT NEXT PTT. STABLE. VSS. NO SOB NOTED
--- NOTE | 2019-08-19 07:21 | NUR ---
RECEIVED BEDSIDE REPORT FROM PLUG MACHINE OPERATOR NURSE, PT IS AAOX1, ABLE TO FOLLOW SIMPLE COMMANDS, VSS, DENIES PAIN, NO S/S OF DISTRESS, COARSE LUNG SOUNDS [place]IS. ON O2 AT 2L VIA NC, ST ON COMMERCIAL LINES ACCOUNT MANAGER, CAP REFILL <2 SEC, [place]. UE NON-PITTING EDEMA NOTED, SOFT ABDOMEN WITH ACTIVE BOWEL SOUNDS, NGT TO RIGHT NARES, FEEDING WITH JEVITY AT 45ML/HR, 10 ML RESIDUALS NOTED, REYES CATHETER IN PLACE WITH SEDIMENT YELLOW URINE VIA GRAVITY, GENERALIZED WEAKNESS NOTED, SKIN IS WARM AND DRY TO TOUCH, NO OPEN WOUNDS, REDNESS TO SACROCOCCYX AREA, PICC LINE TO RIGHT UPPER ARM, PATENT, RUNNING NS AT 90 ML/HR, IV TO LEFT WRIST, 18 GA, PATENT, RUNNING HEPARIN DRIP AT 900 UNITS/HR. HOB ELEVATED TO 30 DEGREES, SAFETY MEASURES IN PLACE, POSITION CHANGED FOR OFF LOAD PRESSURE, WILL CONTINUE TO MONITOR.
[2019-08-19] MEDS: PANTOPRAZOLE 40 MG INJ VIAL IVP SCH (09:13)
[2019-08-19] MEDS: LACTULOSE 20 GM/30 ML UDC PO SCH ×2 (09:13→20:25)
[2019-08-19] MEDS: LACTOBACILLUS RHAMNOSUS GG 1 EACH CAP PO SCH (09:14)
[2019-08-19] MEDS: ASCORBIC ACID 500 MG TAB PO SCH (09:14)
[2019-08-19] MEDS: FUROSEMIDE 40 MG/4 ML VIAL IVP SCH ×2 (09:14→20:26)
[2019-08-19] MEDS: ENTACAPONE 200 MG TAB PO SCH ×2 (09:14→20:24)
[2019-08-19] MEDS: METHENAMINE HIPPURATE PO SCH ×2 (09:15→20:25)
[2019-08-19] MEDS: TERIPARATIDE 600 MCG/2.4 ML SUBQ SCH (09:15)
[2019-08-19] MEDS: Z-GUARD PASTE TP SCH (09:15)
[2019-08-19] MEDS: FERROUS SULFATE 325 MG TABEC PO SCH (09:18)
[2019-08-19] MEDS: CARBIDOPA/LEVODOPA 25/100 MG 1 TAB PO SCH ×4 (09:18→20:24)
[2019-08-19 09:31] LABS: BASOPHILS # (AUTO) 0.2 K/uL (0.00-0.22); BASOPHILS % (AUTO) 1.1 % (0.0-2.0); EOSINOPHILS # (AUTO) 0.1 K/uL (0-0.4); EOSINOPHILS % (AUTO) 0.4 % (0.0-4.0); HEMOGLOBIN 9.1 g/dL (12.0-16.0); LYMPHOCYTES # (AUTO) 1.5 K/uL (2.5-16.5); LYMPHOCYTES % (AUTO) 9.4 % (20.5-51.1); MEAN CORPUSCULAR HEMOGLOBIN 31 pg (27-31); MEAN CORPUSCULAR HGB CONC 34 g/dL (33-37); MEAN CORPUSCULAR VOLUME 91.8 fL (80-94); MONOCYTES # (AUTO) 0.8 K/uL (0.8-1.0); MONOCYTES % (AUTO) 4.9 % (1.7-9.3); NEUTROPHILS # (AUTO) 13.5 K/uL (1.8-7.7); NEUTROPHILS % (AUTO) 84.2 % (42.2-75.2); PLATELET COUNT (AUTO) 331 K/uL (140-450); RED BLOOD CELL COUNT(AUTO) 2.94 MIL/uL (4.20-5.40)
[2019-08-19 09:34] LABS: CARBON DIOXIDE 28.5 mmol/L (21-32); CHLORIDE 103 mmol/L (98-107); CREATININE 0.7 mg/dL (0.6-1.3); GLUCOSE 139 mg/dL (74-106); POTASSIUM 3.5 mmol/L (3.5-5.1); SODIUM SERUM 138 mmol/L (136-145); UREA NITROGEN, BLOOD 13 mg/dL (7-18)
[2019-08-19] MEDS: RIVASTIGMINE 9.5 MG/24 HR PATCH TP SCH (11:23)
--- NOTE | 2019-08-19 11:32 | NUR ---
*Speech Pathology note* Pt and family members seen at bedside. Family members informed this clinician that they are considering placing pt on hospice. When asked if they still wanted speech therapy for P.O. trials, they deliberated and asked if suctioning would be required as part of tx. This clinician informed them that oral suctioning via soft Yankauer would be initiated by clinician if deemed necessary as a result of difficulty swallowing the P.O. trials given. They then verbally refused this tx and further swallow tx, in order to keep the pt comfortable. Therefore, no further swallow tx is indicated at this time. Will DC to [facility] and cancel current S.T. clarification order for swallow tx. extension service specialist in charge Ellen notified. Time [id number]
--- NOTE | 2019-08-19 12:00 | NUR ---
NO S/S OF DISTRESS, ORAL CARE PROVIDED, DENIES PAIN, FAMILY MEMBERS AT BEDSIDE.
[2019-08-19 12:07] LABS: PHOSPHORUS 3.1 mg/dL (2.5-4.9)
--- NOTE | 2019-08-19 13:40 | NUR ---
DR. LIVINGSTON CAME IN, SPOKE TO PATIENT'S FAMILY MEMBERS AT BEDSIDE, DR. ZNUIGA AT BEDSIDE WELL. PATIENT'S FAMILY MEMBER DECIDED TO PUT PATIENT ON HOSPICE CARE, INFORMED COMPENSATION DIRECTOR DINORAH, WILL ARRANGE EVERYTHING.
--- NOTE | 2019-08-19 14:00 | NUR ---
PATIENT IS AAOX2, RESTING IN BED, DENIES PAIN, ORAL CARE PROVIDED, PATIENT REFUSED CHANGE POSITION AT THIS TIME.
--- NOTE | 2019-08-19 15:50 | NUR ---
RICHAR DOVE FROM [facility] HERE TO EVALUATE PATIENT, PATIENT'S FAMILY AT BEDSIDE.
[2019-08-19] MEDS: hePARIN / DEXT 5% PREMIX 250 ML IV SCH (16:34)
--- NOTE | 2019-08-19 16:45 | NUR ---
PER RICHAR FROM [facility], PHONE NUMBER [phone], NO BED AVAILABLE AT [facility] TODAY. BED WILL BE AVAILABLE TOMORROW. TRANSPORT GRUBBER TIME WILL BE AT 1300.
--- NOTE | 2019-08-19 16:54 | NUR ---
H AND P, MEDICATION RECORD AND [facility] ORDER FAXED TO [facility], FAX [phone] AND [facility], FAX [phone].
--- NOTE | 2019-08-19 17:30 | NUR ---
PM CARE AND ORAL CARE PROVIDED, REYES CATHETER CARE PROVIDED, VSS, DENIES PAIN, NO S/S OF DISTRESS, POSITION CHANGED FOR COMFORT.
--- NOTE | 2019-08-19 19:00 | NUR ---
PT AWAKE AND ALERT X1, NO SIGNS OF ACUTE DISTRESS, ON O2 2L VIA NC. NOTED NG TUBE WITH FEEDING ON RIGHT NARES, NO RESIDUAL AT THIS TIME. ENCOURAGE TO TURN AND REPOSITION Q2H. REYES CATHETER IN PLACE, IV INTACT AND PATENT WITH NS AT 90ML/HR. DENIES OF ANY PAIN AT THIS TIME, SAFETY PRECAUTIONS MAINTAINED, CALL LIGHT WITHIN REACH.
--- NOTE | 2019-08-19 19:10 | NUR ---
REPORT GIVEN TO DIRECTOR CARDIOVASCULAR NURSE AT BEDSIDE FOR CONTINUE OF CARE.
--- NOTE | 2019-08-19 19:27 | NUR ---
RECEIVED PATIENT ON 2L NASAL CANNULA, PULSE OX SAT 99%. SCHEDULED BREATHING TREATMENTS ADMINISTERED. TOLERATED TXs WELL WITHOUT ADVERSE SIDE EFFECTS. ORAL CARE DONE POST TX. SUCTIONED SMALL AMOUNT OF THICK, CREAMY SECRETIONS ORALLY. NO ACUTE RESPIRATORY DISTRESS NOTED AT THIS TIME. WILL CONTINUE TO MONITOR.
[2019-08-19] MEDS: OLANZapine 2.5 MG TAB PO SCH (20:24)
[2019-08-19] MEDS: ATORVASTATIN 20 MG TAB PO SCH (20:24)
[2019-08-19 21:10] LABS: MAGNESIUM 1.9 mg/dL (1.8-2.4)
[2019-08-20] MEDS: ALBUTEROL SULFATE/IPRATROPIU 3 ML SOL IH SCH ×2 (01:18→07:18)
--- NOTE | 2019-08-20 01:27 | NUR ---
SCHEDULED BREATHING TREATMENT ADMINISTERED. TOLERATED TX WELL WITHOUT ADVERSE SIDE EFFECTS. ENCOURAGED DEEP COUGH TECHNIQUE AND SUCTIONED SMALL AMOUNT OF THICK, CREAMY SECRETIONS ORALLY. NO ACUTE RESPIRATORY DISTRESS NOTED AT THIS TIME. WILL CONTINUE TO MONITOR.
[2019-08-20] MEDS: NACL 0.9% 1,000 ML IV SCH (02:46)
[2019-08-20 04:00] VITALS: BP 129/63
[2019-08-20] MEDS: PIPERACILLIN/TAZOBACTAM 3.375 GM in DEXTROSE 5% 50 ML IV SCH (04:04)
[2019-08-20] MEDS: BUDESONIDE 0.25 MG/2 ML NEBU INH SCH (07:20)
--- NOTE | 2019-08-20 07:45 | NUR ---
MAKE ROUND BY LEONA MENDEZ AND THE RESIDENTS TEAM.
[2019-08-20 08:00] VITALS: BP 131/54
[2019-08-20] MEDS: FERROUS SULFATE 325 MG TABEC PO SCH (08:00)
--- NOTE | 2019-08-20 08:00 | NUR ---
REPOSITION, ORAL CARE GIVEN.
--- NOTE | 2019-08-20 09:00 | NUR ---
lab call PTT IS 55.2 NO CHANGE ON THE RATE ON THE HEPARIN,
[2019-08-20] MEDS: PANTOPRAZOLE 40 MG INJ VIAL IVP SCH (09:51)
[2019-08-20] MEDS: FUROSEMIDE 40 MG/4 ML VIAL IVP SCH (09:51)
[2019-08-20] MEDS: LACTOBACILLUS RHAMNOSUS GG 1 EACH CAP PO SCH (09:51)
[2019-08-20] MEDS: ASCORBIC ACID 500 MG TAB PO SCH (09:52)
[2019-08-20] MEDS: ENTACAPONE 200 MG TAB PO SCH (09:53)
[2019-08-20] MEDS: Z-GUARD PASTE TP SCH (09:53)
[2019-08-20] MEDS: METHENAMINE HIPPURATE PO SCH (09:59)
[2019-08-20 10:00] VITALS: BP 131/54
[2019-08-20] MEDS: CARBIDOPA/LEVODOPA 25/100 MG 1 TAB PO SCH (10:00)
[2019-08-20] MEDS: RIVASTIGMINE 9.5 MG/24 HR PATCH TP SCH (10:02)
--- NOTE | 2019-08-20 11:20 | NUR ---
VISIT BY HER VICE PRESIDENT SALES AND MARKETING AT BED SIDE.
[2019-08-20 12:00] VITALS: BP 131/54
--- NOTE | 2019-08-20 13:00 | NUR ---
UTILITY TECHNICIAN BY THE TRANSPORT TEAM. PT CONDITION STABLE . TEMP 98.4 HR95 BP 104/56. SHE HAS ALL HER OWN MEDICINE FROM [facility] , HAS NO DENTURES, SHE ALSO HAS 3 WHITE METAL RINGS WITH HER.
== END 2019-08-20 13:40 | disposition hospice, inpatient (51) | DRG 871 ==
LOC: MED 19:12 → MIC 22:22
PROVIDERS: ADMIT General Practice; ATTEND General Practice
PROC: 5A1945Z Respiratory Ventilation, 24-96 Consecutive Hours (ICD-10-PCS; principal; 2019-08-11)
PROC: 0BH17EZ Insertion of Endotracheal Airway into Trachea, Via Natural or Artificial Opening (ICD-10-PCS; 2019-08-11)
PROC: 02HV33Z Insertion of Infusion Device into Superior Vena Cava, Percutaneous Approach (ICD-10-PCS; 2019-08-12)
PROC: B548ZZA Ultrasonography of Superior Vena Cava, Guidance (ICD-10-PCS; 2019-08-12)
PROC: 0DJ08ZZ Inspection of Upper Intestinal Tract, Via Natural or Artificial Opening Endoscopic (ICD-10-PCS; 2019-08-14)
PROC: 30233N1 Transfusion of Nonautologous Red Blood Cells into Peripheral Vein, Percutaneous Approach (ICD-10-PCS; 2019-08-18)
DX: A41.9 Sepsis, unspecified organism (principal); J96.01 Acute respiratory failure with hypoxia; I21.A1 Myocardial infarction type 2; I26.99 Other pulmonary embolism without acute cor pulmonale; J69.0 Pneumonitis due to inhalation of food and vomit; N39.0 Urinary tract infection, site not specified; I82.431 Acute embolism and thrombosis of right popliteal vein; I82.411 Acute embolism and thrombosis of right femoral vein; K92.2 Gastrointestinal hemorrhage, unspecified; A09 Infectious gastroenteritis and colitis, unspecified; R65.20 Severe sepsis without septic shock; D64.9 Anemia, unspecified; E83.39 Other disorders of phosphorus metabolism; E83.42 Hypomagnesemia; E83.41 Hypermagnesemia; E87.6 Hypokalemia; G20 Parkinson's disease; F02.80 Dementia in other diseases classified elsewhere, unspecified severity, without behavioral disturbance, psychotic disturbance, mood disturbance, and anxiety; I10 Essential (primary) hypertension; K59.00 Constipation, unspecified; M81.0 Age-related osteoporosis without current pathological fracture; R04.0 Epistaxis; Z74.01 Bed confinement status; K58.9 Irritable bowel syndrome, unspecified; Z79.899 Other long term (current) drug therapy; Z98.49 Cataract extraction status, unspecified eye; E86.0 Dehydration; A08.4 Viral intestinal infection, unspecified; Z51.5 Encounter for palliative care
CPT/HCPCS: 31500; 36415; 36600; 43753; 70450; 71045; 71275; 80048; 80053; 81001; 82272; 82607; 82728; 82746; 82803; 83036; 83540; 83605; 83690; 83735; 83880; 84100; 84132; 84134; 84443; 84484; 85025; 85045; 85379; 85610; 85730; 86886; 86900; 86901; 86920; 87040; 87070; 87081; 87086; 87205; 87804; 89055; 89220; 92610; 93005; 93970; 94002; 94003; 94640; 96361; 96365; 96367; 99291; C1751; C9113; J1644; J1940; J1956; J2001; J2250; J2543; J2704; J3010; J3475; J3480; J3490; J7030; J7060; J7120; J7620; J7626; P9016; Q0092; Q9967